=== PATIENT | female | born 1985 | race Caucasian/White ===

== ENCOUNTER 2019-10-30 11:37 | Outpatient (REF) | payer BC, SELFPAY ==
--- NOTE | 2019-10-30 10:00 | PAPFT_PTH ---
PATIENT: Keisha Fox LOC: [facility] U#:[id number] AGE/SX: 34/F ROOM: RE10/30/[address]: CHANA Samson : 1985 BED: DIS: 10/30/2019 SPEC #: [id number] RECD: 10/30/19 12:45 STATUS: FIDELIA REQ #: [id number] BAILEY: 10/30/19 10:[address]: Medina Hurtado DEPT: [facility] Cytology RECD BY: Kindra Cutler ENTERED: 10/30/19 12:45 SP TYPE: PAPFT OTHR DR: Jose Beverly MD Tissues: 1 - CX/ENDOCX FOR PAP SMEARS Procedures: PAP THIN PREP/UVM Screening HPV DNA PROBE Comments: [id number]
== END 2019-10-30 11:57 ==
LOC: LBN 11:37
PROVIDERS: PCP Pediatrics; Visit Provider Nurse Practitioner Family
DX: Z11.51 Encounter for screening for human papillomavirus (HPV) (principal)
CPT/HCPCS: 88142; 87624

== ENCOUNTER 2020-04-21 04:58 | Outpatient (CLI) | payer BC, SELFPAY ==
[2020-04-21 11:55] LABS: Kit/Specimen SENT
[2020-04-21 12:10] LABS: Abs Immature Grans 0.03 10^3/uL (0.0-0.06); Absolute Basophil Count 0.04 10^3/uL (0.0-0.2); Absolute Eosinophil Count 0.12 10^3/uL (0.0-0.7); Absolute Lymphocyte Count 2.48 10^3/uL (1.2-3.4); Absolute Monocyte Count 0.69 10^3/uL (0.1-0.8); Absolute Neutrophil Count 6.63 10^3/uL (1.2-6.7); Basophils % 0.4; Eosinophils % 1.2; HCT 38.6 % (36.0-46.0); HGB 12.9 g/dL (11.2-15.7); Immature Grans % 0.3; Lymphocytes % 24.8; MCH 31.3 pg (27.0-33.0); MCHC 33.4 % (32.0-36.0); MCV 93.7 fL (80-95); MPV 9.8 fL (8.0-11.0); Monocytes % 6.9; Neutrophils % 66.4; Nucleated RBC 0 %; Platelet Count 249 10^3/uL (130-400); RBC 4.12 10^6/uL (3.93-5.22); RDW 12.3 % (11.7-14.6); RDW-SD 42.6 fL; WBC 9.99 10^3/uL (4.4-10.8)
[2020-04-21 13:44] LABS: TSH (W/Ref FT4) 1.67 uIU/mL (0.36-3.74)
[2020-04-22 09:19] LABS: Hepatitis B Surface Ag Negative (Negative)
[2020-04-22 09:57] LABS: HIV-1/2 Ag & Ab Screen Negative (Negative)
[2020-04-22 10:11] LABS: Hepatitis C Ab w Rflx HCV PCR Negative (Negative)
[2020-04-22 10:43] LABS: Varicella IgG Antibody Positive (See Note)
[2020-04-22 10:45] LABS: Rubella IgG Ab (UVM) Positive (See Note)
[2020-04-22 14:25] LABS: Syphilis Total Ab w/Reflex Nonreactive (Nonreactive)
[2020-04-27 23:51] LABS: Result Summary NEGATIVE; Specimen WB Whole Blood
[2020-05-03 13:53] LABS: Specimen WB Whole Blood
== END 2020-04-21 05:18 ==
PROVIDERS: PCP Student in an Organized Health Care Education/Training Program; Visit Provider Advanced Practice Midwife
DX: Z34.91 Encounter for supervision of normal pregnancy, unspecified, first trimester (principal); Z11.4 Encounter for screening for human immunodeficiency virus [HIV]; Z11.59 Encounter for screening for other viral diseases; Z01.84 Encounter for antibody response examination
CPT/HCPCS: 36415; 81329; 86787; 86803; 86850; 86900; 86901; 87340; 87389; 81220; 84443; 85025; 86762; 86780

== ENCOUNTER 2020-04-21 18:48 | Outpatient (REF) | payer BC, SELFPAY ==
[2020-04-21 13:57] LABS: *AMPHETAMINES SCREEN URINE Negative (Negative); *BARBITURATES SCREEN URINE Negative (Negative); *BENZODIAZEPINES SCREEN URINE Negative (Negative); Cannabinoids THC POSITIVE (Negative); Cocaine Screen,Urine Negative (Negative); METHADONE URINE SCREEN Negative (Negative); OPIATES URINE SCREEN Negative (Negative)
[2020-04-21 14:01] LABS: Tricyclic Antidepressants Negative (Negative)
[2020-04-22 15:31] LABS: Chlamydia Result Negative (Negative); GC Result Negative (Negative)
[2020-04-28 13:48] LABS: Buprenorphine Negative; Norbuprenorphine Negative
== END 2020-04-21 19:08 ==
LOC: LBN 18:48
PROVIDERS: PCP Student in an Organized Health Care Education/Training Program; Visit Provider Advanced Practice Midwife
DX: Z34.91 Encounter for supervision of normal pregnancy, unspecified, first trimester (principal); Z11.3 Encounter for screening for infections with a predominantly sexual mode of transmission
CPT/HCPCS: 80307; 87491; 87591; 87086

== ENCOUNTER 2020-08-05 03:33 | Outpatient (CLI) | payer BC, SELFPAY ==
[2020-08-05 13:54] LABS: HCT 37.5 % (36.0-46.0); MCV 96.9 fL (80-95); MPV 9.7 fL (8.0-11.0); Platelet Count 265 10^3/uL (130-400); RBC 3.87 10^6/uL (3.93-5.22); RDW 12.7 % (11.7-14.6); RDW-SD 45.2 fL; WBC 9.92 10^3/uL (4.4-10.8)
[2020-08-05 14:05] LABS: Glucose,1 Hr (Glucola) 126 mg/dL (80-140)
== END 2020-08-05 03:34 | disposition home or self-care (01) ==
LOC: LBO 03:33
PROVIDERS: PCP Student in an Organized Health Care Education/Training Program; Visit Provider Advanced Practice Midwife
DX: Z34.92 Encounter for supervision of normal pregnancy, unspecified, second trimester (principal); Z3A.27 27 weeks gestation of pregnancy
CPT/HCPCS: 36415; 82950; 85027

== ENCOUNTER 2020-09-20 02:11 | Outpatient (CLI) | payer BC, SELFPAY ==
--- NOTE | 2020-09-20 06:45 | DI.US_ITS ---
Exam(s) US OB JARROD WEIGHT EXAM: US OB JARROD WEIGHT CLINICAL HISTORY: growth related to AMA per recommendation of [facility] [place]o09.519 TECHNIQUE: Ultrasound performed using standard protocol. COMPARISON: No exams were available for comparison FINDINGS: Ob ultrasound was performed utilizing 3rd trimester protocol. Placenta is anterior with no placenta previa. There is visually a normal quantity of amniotic fluid and the JARROD is 18. biometry is consistent with gestational age of 34 weeks 1 day and an EDC of October 31. Estimated weight is 2279 grams which is at the 41st percentile for predicted gestational age. Fetus is in cephalic presentation. heart rate is 139 BPM. IMPRESSION: DATA REPOSITORY:
== END 2020-09-20 02:31 ==
PROVIDERS: PCP Student in an Organized Health Care Education/Training Program; Visit Provider Advanced Practice Midwife
DX: O09.513 Supervision of elderly primigravida, third trimester (principal); Z3A.34 34 weeks gestation of pregnancy
CPT/HCPCS: 76816

== ENCOUNTER 2020-10-04 15:25 | Outpatient (REF) | payer BC, SELFPAY | END 2020-10-04 15:26 | disposition home or self-care (01) | LOC: LBN 15:25 | PROVIDERS: PCP Student in an Organized Health Care Education/Training Program; Visit Provider Advanced Practice Midwife | DX: Z34.93 Encounter for supervision of normal pregnancy, unspecified, third trimester (principal); Z36.85 Encounter for antenatal screening for Streptococcus B; Z3A.34 34 weeks gestation of pregnancy | CPT/HCPCS: 87081 ==

== ENCOUNTER 2020-10-20 18:34 | Outpatient (REF) | payer BC, SELFPAY ==
[2020-10-20 20:37] LABS: *AMPHETAMINES SCREEN URINE Negative (Negative); *BARBITURATES SCREEN URINE Negative (Negative); *BENZODIAZEPINES SCREEN URINE Negative (Negative); Cannabinoids THC Negative (Negative); Cocaine Screen,Urine Negative (Negative); METHADONE URINE SCREEN Negative (Negative); OPIATES URINE SCREEN Negative (Negative)
[2020-10-20 20:38] LABS: Tricyclic Antidepressants Negative (Negative)
[2020-10-26 12:37] LABS: Buprenorphine Negative ng/mL (Cutoff: 5.0); Norbuprenorphine Negative ng/mL (Cutoff: 2.5)
== END 2020-10-20 18:35 | disposition home or self-care (01) ==
LOC: LBN 18:34
PROVIDERS: PCP Student in an Organized Health Care Education/Training Program; Visit Provider Advanced Practice Midwife
DX: Z34.93 Encounter for supervision of normal pregnancy, unspecified, third trimester (principal); Z3A.38 38 weeks gestation of pregnancy
CPT/HCPCS: 80307

== ENCOUNTER 2020-11-02 06:11 | Outpatient (CLI) | payer BC, SELFPAY | END 2020-11-02 06:12 | disposition home or self-care (01) | LOC: BCD 06:12 | PROVIDERS: PCP Student in an Organized Health Care Education/Training Program; Visit Provider Advanced Practice Midwife | DX: R69 Illness, unspecified (principal) ==

== ENCOUNTER 2020-11-03 21:28 | Inpatient (IN) | payer BC, SELFPAY ==
[2020-11-03 22:26] VITALS: BP 136/86; PULSE 75; RESP 18
[2020-11-03 22:33] VITALS: BP 136/86; PULSE 75; RESP 16; TEMP 36.7
--- NOTE | 2020-11-03 22:59 | W.PM.OBHPL1 ---
Date of service: 11/03/20 Time of Service: 22:59 Assessment and Plan Assessment and plan (1) 40 weeks gestation of : Status: Acute (2) Uterine contractions: Status: Acute Assessment and plan: A: 35 yo G1 @ 40+1 wks latent phase labor, intact membranes category 1 tracing GBS neg, low risk for SD and PPH P: Will observe overnight for cervical change/active labor Ambulate, shower, comfort measures as requested Encourage PO fluid intake, anti-emetic prn Recheck cvx in 3-4 hrs or prn OB-HPI Labor/Delivery History of Present Illness Reason for Visit: 40 weeks r/o labor Chief Complaint: Uterine Contractions. GLENIS Calculator Estimated Delivery Date Method Current WG Current Estimate 11/02/20 LMP (Certain) 40w 1d Other Estimates 11/05/20 Ultrasound #1 39w 5d Comments: Contractions began at 1730, became somewhat more regular and stronger as the evening passed, nausea and vomiting on the ride to the hospital. No bleeding, no ROM. History of Present Expected Delivery Route/Plan - CNM FOB/ - Bruce Ernandezman BB yes to circ Desires to use tub, shower, labor actively. May request to take placenta home. GBS neg Prefers to avoid active management of third stage unless strongly indicated Specific Issues/Plan 1. 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 1a. Pt did not give UDS spec @ 28 wks, UDS @ 38 wks is negative 2. AMA accepts MFM consult @ [facility] [place] - 06/15 - 2a. US shows echogenic intracardiac foci - otherwise WNL. 2b. Growth US at 32 weeks / US 09/20/20 41% growth, normal JARROD 18 3. Low dose ASA to initiate as of IOB 2`to nullip/ama status. 4. Optional labs as of IOB: Eliot result low prob x3, male 4a. CF & SMA carrier screen neg al 5. Heartburn - using TUMS and maalox PRN 6. Keisha and her partner received 2 doses of covid vaccine Assessment: History Reviewed & Current Review of Systems All systems reviewed & are unremarkable except as noted in HPI and below Constitutional Constitutional: Reports system reviewed and no additional complaints, except as documented and Reports poor appetite Cardiovascular Cardiovascular: Reports system reviewed and no additional complaints, except as documented Respiratory Respiratory: Reports system reviewed and no additional complaints, except as documented Gastrointestinal Gastrointestinal: Reports system reviewed and no additional complaints, except as documented Genitourinary Genitourinary: Reports system reviewed and no additional complaints, except as documented Musculoskeletal Musculoskeletal: Reports back pain Integumentary/Breasts Skin/Breast: Reports system reviewed and no additional complaints, except as documented Neurologic Neurologic: Reports system reviewed and no additional complaints, except as documented Psychiatric Psychiatric: Reports system reviewed and no additional complaints, except as documented [facility] Medical History (Updated 11/03/20 @ 23:06 by Erendira Gutierrez) Elevated blood pressure reading in- office x2 Environmental allergies Eye fatigue Family history of coronary artery disease Family planning Recently stopped BC (Dec 2019) to start a family. Working with Nancy @ [employer]. Foot pain, left Acute, no clear memory of injury. @ left sole, just proximal to toes. Marijuana use early , neg THC on UDS at 38 wks Positive test Family History (Updated 04/21/20 @ 10:30 by Julien Carreon, VIVI) Father Multiple sclerosis Sister Multiple sclerosis Mother Hypertension Social History (Updated 04/21/20 @ 10:31 by Julien Carreon, VIVI) Smoking/Tobacco Use Status: Never Smoking risk assessment performed?: Yes Alcohol Intake: former Counseling given: Yes Details: stopped with desire to concieve. al History History 1 Para 0 Hx # Term Pregnancies 0 Multiple births 0 Hx # Pregnancies 0 Ectopic pregnancies 0 AB induced 0 Hx Number of Living Children 0 AB spontaneous 0 Meds Allergies and Home Medications Allergies Allergy/AdvReac Type Severity Reaction Status Date / Time seasonal Allergy Intermediate Uncoded 10/28/20 10:53 Home Medications Medication Instructions Recorded Confirmed Type prenat.vits,jade,jkh-hjcx-oiyhj 1 tab PO DAILY 03/07/20 10/28/20 History aspirin 81 mg tablet,delayed 162 mg PO DAILY tab 08/19/20 10/28/20 History release aluminum-mag hydroxide-simethicone 10 ml PO ONCE PRN ml 10/04/20 10/28/20 History 200 mg-200 mg-20 mg/5 mL oral susp calcium carbonate 200 mg calcium 400 mg PO BID PRN tab 10/04/20 10/28/20 History (500 mg) chewable tablet loratadine 10 mg tablet 10 mg PO DAILY PRN 10/13/20 10/28/20 History Exam Physical Exam Vital signs: Pulse Resp BP 75 18 136/86 11/03/20 22:33 11/03/20 22:26 11/03/20 22:33 Vital Signs Reviewed: Yes Constitutional Constitutional: mild distress Detailed Labor and Delivery Exam Dilation: 1.5 Effacement (%): 80 station: -2 Position: LOP Cervix position: posterior Consistency: medium NOLAN Score(Cervical Ripeness Score): 6 Amniotic Membrane Status: Intact Contraction Frequency(min): q2-4 Contraction Duration(sec): 40-70 Contraction Intensity: Mild Fetus A Heart Rate Baseline: 135 Monitor Accelerations: 15 X 15 Monitor Decelerations: None Variability: Moderate (6-25 BPM) Presentation: Cephalic Categories: Category I Est. Weight: 7 lb 4.404 oz Est. Weight: 3300 gms HEENT Exam HEENT Exam: Normal Neck Exam Neck Exam: Normal Chest/Brest/Axilla Exam Chest Exam: Normal Breast Exam Breast Exam: Not Done Respiratory Exam Respiratory Exam: Normal Cardiovascular Exam Cardiovascular Exam: Normal Abdominal Exam Abdominal Exam: Normal (Gravid) Rectal Exam Rectal Exam: Not Done Exam Exam: Normal Extremities Exam Extremities Exam: Normal Back/Spine/Pelvis Exam Back Exam: Normal Pelvis Adequate: Yes Skin Exam Skin Exam: Normal Neurological Exam Neurological Exam: Normal Psychiatric Exam Psychiatric Exam: Normal Results Results Group Beta Strep: Negative Blood Type: A+ Rubella Status: Immune Varicella Immunity: Immune Risk Assessment Risk for Shoulder Dystocia Historical/Initial OB: NEGATIVE FOR: Pelvic Abnormality, Pre- BMI>30, Previous Shoulder Dystocia or Previous Macrosomia 40 Weeks: NEGATIVE FOR: EFW> 4500 gms, Maternal Weight Gain >40lb or Post Dates Increased Risk?: No Counselin04/21/20 low risk al Delivery Plan @ 40 wks: spont labor, Risk for Pre-Eclampsia Daily Dose ASA Indicated: Yes Date Initiated/Initials: 04/21/20 al Yes, if one or more: NEGATIVE FOR: Hx Pre-E/Gest HTN, Chronic HTN, Multiple Gestation, Pre-gestational DM, Renal Disease, Systemic Lupus or APA Syndrome Yes, if 2 or more: POSITIVE FOR: Nulliparity and Age>= 35 yrs; NEGATIVE FOR: >10yr btwn pregnancies, BMI>30, ethinicty, Mother/Sister w/ Pre-E or Previous IUGR Risk for Post- Hemorrhage Initial: NEGATIVE FOR: Multiple Gestation, Previous PPH, Known Clotting Deficiency, Grand Multiparity or Anticoagulation At Risk?: No Counseled re: Active Management: Yes Date/Initials: pt hopes to avoid active management but understands indications Risks Reviewed Risks Reviewed Upon Admission: Yes
[2020-11-03 23:26] LABS: Source Nasal/Nares
[2020-11-04] VITALS (50 sets, daily range): BP systolic 98–160; BP diastolic 58–96; PULSE 74–99; RESP 16–18; TEMP 36.5–37.1; O2SAT 97–100; BMI 28.3
[2020-11-04 00:20] LABS: COVID-19 PCR Negative (Negative)
[2020-11-04] MEDS: Ondansetron O.D.T. 4 MG TABEF PO (01:46)
--- NOTE | 2020-11-04 01:51 | W.PM.OBNL1 ---
Date of service: 11/04/20 Time of Service: 01:51 Pelvic Exam Dilation: 2 Effacement (%): 90 station: -1 Position: LOP Cervix Position: posterior Consistency: medium Vaginal Exam Presentation: Cephalic Contractions Monitor Mode: Palpation Contraction Frequency(min): q2-3 Contraction Duration(sec): 60-70 Intensity: Mild/Moderate Fetus A Monitor: Doppler Heart Rate Baseline: 135 Presentation: Cephalic FHR Rhythm: Regular Accelerations: Present Decelerations: None Amniotic Membrane Status: Intact Assessment and Plan Assessment and plan (1) Uterine contractions: Status: Acute Assessment and plan: A: Latent phase labor in primipara mild dehydration, risk of maternal exhaustion P: Options for IV Hydration and narcotic therapeutic rest reviewed & declined by pt Offered Zofran 4 mg ODT q4 hrs for nausea, pt accepts Offered use of hydrotherapy tub for relaxation, pt accepts Admit inpt to BC and draw T&S and CBC, COVID swab done and negative Continue to support pt and monitor for onset of active labor Objective Temp Pulse Resp BP 98.1 F 75 16 136/86 11/03/20 22:33 11/03/20 22:33 11/03/20 22:33 11/03/20 22:33 Laboratory Results COVID-19 Source Nasal/Nares 11/03/20 23:10 SARS-CoV-2 (PCR) Negative (Negative) 11/03/20 23:10 Vital Signs Reviewed: Yes Objective Narrative Objective Narrative: Normotensive, afebrile Slight cervical change with palpable descent on exam Pt closes eyes and breathes hard with each contraction Has been ambuating, resting, using floor mat and CUB, shower FHT reassuring per intermittent auscultation Tolerating sips of water but nauseated Urine sp gr on arrival 2 hrs ago was concentrated @ 1.025 Subjective Interval history since last seen: Pt feels tired, wishes she coudl sleep but contractions come every 2-3 minutes. She did doze off while on floor mat briefly. Requesting cvx recheck and options for comfort/coping. Interventions Pain Management Interventions: Comfort Measures .
[2020-11-04 02:09] LABS: HGB 12.2 g/dL (11.2-15.7); MCH 31.1 pg (27.0-33.0); MCV 94.4 fL (80-95); MPV 11.2 fL (8.0-11.0); Platelet Count 189 10^3/uL (130-400); RBC 3.92 10^6/uL (3.93-5.22); RDW 12.8 % (11.7-14.6); RDW-SD 44.1 fL; WBC 15.61 10^3/uL (4.4-10.8)
--- NOTE | 2020-11-04 05:43 | W.PM.OBNL1 ---
Date of service: 11/04/20 Time of Service: 05:43 Pelvic Exam Dilation: 3 Effacement (%): 100 station: -1 Cervix Position: mid Consistency: soft Vaginal Exam Presentation: Cephalic Contractions Monitor Mode: External Contraction Frequency(min): every 2-3 Contraction Duration(sec): 60-90 Intensity: Moderate/Strong Fetus A Monitor: External (US) Heart Rate Baseline: 130 Presentation: Cephalic Variability: Moderate (6-25 BPM) Categories: Category I Accelerations: Prolonged Decelerations: None Amniotic Membrane Status: Intact Assessment and Plan Assessment and plan (1) Uterine contractions: Status: Acute Assessment and plan: A: primipara progressing into active labor P: Continue to expectant management Comfort measures as needed Anticipate today Objective Vital Signs Reviewed: Yes Objective Narrative Objective Narrative: Rested well in tub Requested nitrous inhalant when back in bed on EFM Temp 99.1 after leaving tub, Category 1 tracing with prolonged accels noted SVE done for notable progress toward active labor: 3/100% vtx -1, soft forebag Pt requested information about epidural anesthesia, discussed with pt & FOB Declines regional anesthesia at this time & entered shower Subjective Interval history since last seen: Contractions are very strong, nausea persists but without emesis. Was in the tub for 2-3 hrs with good relaxation and was able to nap. Pain has increased since leaving the tub. Interventions Pain Management Interventions: Comfort Measures and Nitrous Oxide , using nitrous per guidelines .
--- NOTE | 2020-11-04 06:12 | PGE_ITS ---
Date of service: 11/04/20 Time of Service: 06:12 Informed Consent Informed Consent: Regional Anesthesia and Risk,Benefits,Alternatives Discussed Fetus A Monitor: External (US) Heart Rate Baseline: 130 Presentation: Cephalic Variability: Moderate (6-25 BPM) Categories: Category I Accelerations: 15 X 15 Decelerations: None Amniotic Membrane Status: Intact Assessment and Plan Assessment and plan (1) Uterine contractions: Status: Acute Assessment and plan: A: request for epidural P: Nsng tracer bullet section supervisor notified VOLLEYBALL COMMENTATOR enroute Objective Pt and FOB discussed regional anesthesia and pt requests epidural Subjective Interval history since last seen: Pt requests epidural anesthesia Interventions Pain Management Interventions: Epidural .
--- NOTE | 2020-11-04 06:23 | ANES.PREOP_ITS ---
General Info Date of Service Date Performed: 11/04/20 Height: 5 ft 6.14 in Weight: 79.832 kg Body Mass Index (BMI): 28.3 Meds Allergies and Home Medications Allergies Allergy/AdvReac Type Severity Reaction Status Date / Time seasonal Allergy Intermediate Uncoded 10/28/20 10:53 Home Medication Medication Instructions Recorded prenat.vits,jade,dge-oyem-etlod 1 tab PO DAILY 03/07/20 aspirin 81 mg tablet,delayed 162 mg PO DAILY tab 08/19/20 release aluminum-mag hydroxide-simethicone 10 ml PO ONCE PRN ml 10/04/20 200 mg-200 mg-20 mg/5 mL oral susp calcium carbonate 200 mg calcium 400 mg PO BID PRN tab 10/04/20 (500 mg) chewable tablet loratadine 10 mg tablet 10 mg PO DAILY PRN 10/13/20 Current Visit Medications: Current Medications Generic Name Dose Route Start Last Admin Trade Name Freq PRN Reason Stop Dose Admin Fentanyl/Ropivacaine 200 ml 11/04/20 06:15 Fentanyl/Ropivacaine 2 Mcg/Ml And 0.1% 200 Ml Cadd Cassette EP DIRECTED FARRAH Ringer's Solution 500 mls @ 500 mls/hr 11/04/20 06:05 IV 11/04/20 07:04 BOLUS ONE Sodium Chloride 500 mls @ 0 mls/hr 11/04/20 06:16 Saline 500ml Bag IV PRN PRN As Directed Ringer's Solution 1,000 mls @ 150 mls/hr 11/04/20 06:30 IV INFUSION [facility] IV Miscellaneous Supplies 1 each 11/04/20 06:30 Iv Access IV DIRECTED [facility] Ondansetron HCl 4 mg 11/03/20 23:11 11/04/20 01:46 Ondansetron O.D.T. 4 Mg Tabef PO 4 mg Q4H PRN PRN Administration Sodium Chloride 0 ml 11/04/20 06:16 Normal Saline Flush 10 Ml Syr IVP PRN PRN PFSH Active Problems Active Problems: Problem Status Onset Code Uterine contractions O47.9 40 weeks gestation of Z3A.40 AMA (advanced maternal age) primigravida 35+ O09.519 Z34.90 Echogenic intracardiac focus of fetus on ultrasound O28.3 Marijuana use F12.90 Elevated blood pressure reading R03.0 Foot pain, left M79.672 Environmental allergies Z91.09 Family history of coronary artery disease Z82.49 Eye fatigue H53.10 Medical History Medical History (Updated 11/03/20 @ 23:06 by Erendira Gutierrez) Elevated blood pressure reading in- office x2 Environmental allergies Eye fatigue Family history of coronary artery disease Family planning Recently stopped BC (Dec 2019) to start a family. Working with Nancy @ [employer]. Foot pain, left Acute, no clear memory of injury. @ left sole, just proximal to toes. Marijuana use early , neg THC on UDS at 38 wks Positive test Tobacco Smoking/Tobacco Use Status: Never Alcohol Alcohol Intake: former Counseling given: Yes Details: stopped with desire to concieve. al Substance Use Substance use type: marijuana Prental History History 1 Para 0 Hx # Term Pregnancies 0 Multiple births 0 Hx # Pregnancies 0 Ectopic pregnancies 0 AB induced 0 Hx Number of Living Children 0 AB spontaneous 0 Vital Signs and Lab Results Vital Signs Most Recent Vital Signs in EMR: Most Recent Vital Signs Temp Pulse Resp BP Pulse Ox 37.1 C 95 H 18 140/84 98 11/04/20 04:40 11/04/20 04:42 11/04/20 04:40 11/04/20 04:40 11/04/20 04:42 Lab Results Result Diagrams: 11/04/20 02:00 Blood Type / Crossmatch: Patient ABO/Rh A Positive 11/04/20 02:00 11/04/20 Antibody Screen NEGATIVE 11/04/20 02:00 11/04/20 Complete Blood Count: White Blood Count 15.61 10^3/uL (4.4-10.8) H 11/04/20 02:00 11/04/20 Red Blood Count 3.92 10^6/uL (3.93-5.22) L 11/04/20 02:00 11/04/20 Hemoglobin 12.2 g/dL (11.2-15.7) 11/04/20 02:00 11/04/20 Hematocrit 37.0 % (36.0-46.0) 11/04/20 02:00 11/04/20 Platelet Count 189 10^3/uL (130-400) 11/04/20 02:00 11/04/20 Complete Metabolic Panel: No Data to Display Liver Function Panel: No Data to Display Coagulation Panel: No Data to Display Cardiac Panel: No Data to Display Arterial Blood Gas: No Data to Display Venous Blood Gas: No Data to Display Pancreas Panel: No Data to Display Thyroid Panel: No Data to Display Infectious Disease: Coronavirus (COVID-19)(PCR) Negative (Negative) 11/03/20 23:10 11/03/20 Coronavirus 2019 Source Nasal/Nares 11/03/20 23:10 11/03/20 Blood Cultures: No Data to Display Toxicology Panel: Urine Amphetamines Screen Negative (Negative) 10/20/20 14:50 10/20/20 Urine Benzodiazepines Screen Negative (Negative) 10/20/20 14:50 10/20/20 Urine Barbiturates Screen Negative (Negative) 10/20/20 14:50 10/20/20 Urine Cocaine Screen Negative (Negative) 10/20/20 14:50 10/20/20 Urine Methadone Screen Negative (Negative) 10/20/20 14:50 10/20/20 Urine Opiates Screen Negative (Negative) 10/20/20 14:50 10/20/20 Ur Tricyclic Antidepressants Screen Negative (Negative) 10/20/20 14:50 10/20/20 Ur Tetrahydrocannabinol (THC) Scrn Negative (Negative) 10/20/20 14:50 10/20/20 Panel: No Data to Display Anesthesia Assessment and Plan Anesthesia History Personal History: No History of General Anesthesia Family History: No Family History of Anesthesia Complications Exercise Tolerance Exercise Tolerance: Metabolic Equivalents>4 Pertinent Negatives Pertinent Negatives: No Major Cardiovascular Symptoms or Complaints, No Major Pulmonary Symptoms or Complaints, No History of CVA/TIA and Other (GERD) Cardiac & Pulmonary Exam Cardiac Exam: Normal S1/S2 Heart Sounds Pulmonary Exam: Clear Bilateral Breath Sounds Airway Exam Known Difficult Airway: No Mallampati Class: 1 Mouth Opening: Normal (> 3cm) Thyromental Distance: Greater than 3 cm Neck Range of Motion: Full ROM Neck Circumference: Normal Teeth Condition: Normal Dentition ASA Classification ASA Score: ASA 2 Emergency Case?: No NPO Status NPO Status: Full Stomach Status Status: Confirmed and Other () Anesthesia Plan Resuscitation Status: Full Code Anesthesia Technique: Epidural Anesthesia Airway Planned: Natural Airway Monitors Used: Standard Monitors Preoperative Comments:: 35 yo female G1 with labor epidural request. plt 189. was 3 cm, 100%, -1 at 0500.
[2020-11-04] MEDS: Lactated Ringers 500 ML IV (06:30)
[2020-11-04] MEDS: FentaNYL/ROPIvacaine 2 mcg/ml and 0.1% 200 ML CADD Cassette EP ×2 (07:00→20:00)
[2020-11-04] MEDS: Lactated Ringers 1,000 ML 150 ML IV ×3 (07:27→17:33)
--- NOTE | 2020-11-04 08:50 | W.ANESNEU ---
Epidural/Spinal Catheter Date Performed: 11/04/20 Procedure Start: 06:30 Procedure Stop: 07:05 Requesting Provider: Erendira Gutierrez Procedure Location: Obstetrics Reason Performed: Labor Epidural Standard Monitors Applied: Blood Pressure and SpO2 Patient Position: Sitting Sedation Given (Indicate Dose Given): No Sedation given Patient Mental Status: Awake Sterility: Hand Hygiene, Surgical Cap, Surgical Mask, Sterile Gloves, Sterile Drape/Sheet and Chlorhexidine Procedure Location: L3-L4 Interspace Epidural Needle: Tuohy 17 Guage Needle Length: 3.5 Inch Needle Approach: Midline Epidural Procedure: Skin Prepped, Sterile Drape Placed, 1% Lidocaine to skin and subcutaneous tissue with 25G needle, Tuohy Needle placed, ZENIA to Saline Used, Epidural Catheter Placed, Negative Heme, Negative CSF Flow and Tuohy Needle Removed Catheter Placed?: Catheter Placed Test Dose (Indicate Dose Given): 3ml 1.5% Lidocaine with 1:200K Epinephrine Given Loss of Resistance Depth (cm): 5 Catheter depth at skin (cm): 12 Dressing: Sorbaview Dressing Placed, Mastisol Used and Dressing reinforced with Tape Epidural Provider Bolus (Indicate Dose Given): Total Ropivacaine 0.1% with Fentanyl 2mcg/ml Given from pump (ml) Dose:: 5mL Additives (Indicate Dose Given ): None Infusion Medication: Medication Infusion Began Medication Infusion: Ropivacaine 0.1% with Fentanyl 2mcg/ml Maintenance Infusion Rate (ml/hour): 12 PCEA Bolus Dose (ml): 5 Block Level: N/A Paresthesia: None Ultrasound: Not Used Number of Attempts (See previous attempts in note section): 1 Procedure Tolerated: No Complications and Patient tolerated well Procedure Outcome: Successful Performed By: Ca Licea Supervised By: Edgar Hughes
--- NOTE | 2020-11-04 08:54 | W.PM.OBNL1 ---
Date of service: 11/04/20 Time of Service: 08:54 Pelvic Exam Dilation: 4 Effacement (%): 100 station: -1 Position: LOP Cervix Position: mid Consistency: soft Contractions Monitor Mode: External Contraction Frequency(min): q2-4 Contraction Duration(sec): 60-80 Intensity: Moderate Fetus A Monitor: External (US) Heart Rate Baseline: 135 Presentation: Cephalic Variability: Moderate (6-25 BPM) Categories: Category I Accelerations: 15 X 15 Decelerations: None Amniotic Membrane Status: Ruptured Rupture Method: Artifical Amniotic Fluid: Clear Amount: moderate Date of Membrane Rupture: 11/04/20 Time of Membrane Rupture: 08:50 Assessment and Plan Assessment and plan (1) Uterine contractions: Status: Acute Assessment and plan: A: primipara, active labor, epidural P: maternal position changes to facilitate rotation consider augmentation if no cervical change in 2 hrs anticipate Objective Vital Signs Reviewed: Yes Objective Narrative Objective Narrative: Pt resting well with epidural Verbal consent obtained for AROM Clear fluid with bloody show returned LOP position clearly palpable by sutures vss, category 1 tracing Subjective Interval history since last seen: Pt reports good relief with epidural anesthesia. Interventions Pain Management Interventions: Epidural Epidural Placed by:: Edgar Hughes . Results Abnormal Lab Findings:
[2020-11-04] MEDS: Oxytocin/Normal Saline 30 UNIT/500 ML BAG 1 UNITS IV (11:02)
--- NOTE | 2020-11-04 13:31 | W.PM.OBNL1 ---
Date of service: 11/04/20 Time of Service: 13:32 Informed Consent Informed Consent: Other (insertion of IUPC) Pelvic Exam Dilation: 4.5 Effacement (%): 100 station: -1 Cervix Position: mid Consistency: soft Contractions Monitor Mode: Internal Contraction Frequency(min): q 2-4 Contraction Duration(sec): 60-70 Intensity: Moderate/Strong IUPC resting tone (mmHg): 20 IUPC peak pressure (mmHg): 90 Fetus A Monitor: External (US) Heart Rate Baseline: 120 Presentation: Cephalic Variability: Moderate (6-25 BPM) Categories: Category I Accelerations: 15 X 15 Decelerations: Early Recurrence: Intermittent Amniotic Membrane Status: Ruptured Assessment and Plan Assessment and plan (1) Uterine contractions: Status: Acute Assessment and plan: A: primipara, spontaneous labor epidural anesthesia since 3 cm dilation @ 0700, AROM @ 4 cm dilation, Pitocin augmentation begun at 1115 Slow progress to 4-5 cm P: IUPC inserted and working well Will adjust pitocin as needed for adequate contraction pattern Dr. Alfaro consulting Objective Reports her left leg is more numb then right Attempted to use bedside commode but legs are too numb Armenta inserted per RN for 200 ml concentrated yellow urine Pitocin begun at 1115, currently infusing at 2 mu/min Contractions have remained irregular, intensity difficult to assess SVE now 4-5/100% vtx -1, cervical edema palpable, slight caput and molding palpable IUPC inserted after informed consent obtained with pt, pt declines FSE application EFM tracing generally category 1 with occasional early, question of occasional variable Subjective Patient Reports: No new Complaints Interval history since last seen: Comfortably resting with effective epidural Interventions Augmentation , Pitocin rate (mU/min): 2 Procedure Procedures: IUPC Insertion , indication for IUPC: assessment of adequacy of contractions, pitocin augmentation
--- NOTE | 2020-11-04 16:08 | PGE_ITS ---
Date of service: 11/04/20 Time of Service: 16:09 Pelvic Exam Dilation: 7 Effacement (%): 100 station: -1 Position: LOP Cervix Position: mid Consistency: soft Contractions Monitor Mode: External Contraction Frequency(min): q2-4 Contraction Duration(sec): 60-80 Intensity: Moderate/Strong IUPC resting tone (mmHg): 20 IUPC peak pressure (mmHg): 90 IUPC [place] units: 70 Fetus A Monitor: External (US) Heart Rate Baseline: 125 Presentation: Cephalic Variability: Moderate (6-25 BPM) Categories: Category I (occasional variable noted with a contraction, nonrecurrent, question of lates resolved with position change) Accelerations: 15 X 15 Decelerations: Early Amniotic Membrane Status: Ruptured Assessment and Plan Assessment and plan (1) Prolonged labor with first : Status: Acute Assessment and plan: A: active labor currently @ 7 cm, epidural anesthesia, IUPC in place pitocin augmentation, @ 4 mu/min adequate contraction pattern per Javier Units @ >200/10 min segment persistent LOP head position @ -1 EFM tracing generally category 1 P: Dr. Alfaro made aware of pt status Cont current plan of care Reassess for progress in 2-3 hrs Objective Vital Signs Reviewed: Yes Objective Narrative Objective Narrative: Pt remains comfortable, is able to sense contractions as lower abd pressure. Reports mid-back pain at times. Pt sat up for to rub her back and late decels appeared though moderate variability continues SVE for 7/100% LOP -1, pt positioned LLP and 500 ml bolus given IV Tracing returned to category 1 thereafter, and accel was elicited with scalp stim during SVE. Discussed with pt the implications of persistent LOP position on slow progress in labor Subjective Patient Reports: No new Complaints
--- NOTE | 2020-11-04 18:08 | PGE_ITS ---
Date of service: 11/04/20 Time of Service: 18:08 Pelvic Exam Dilation: 8.5 station: -1 Position: LOP Contractions Monitor Mode: External Contraction Frequency(min): q 2-3 Contraction Duration(sec): 60-80 IUPC resting tone (mmHg): 25 IUPC peak pressure (mmHg): 80 Fetus A Monitor: External (US) Heart Rate Baseline: 135 Presentation: Cephalic Variability: Moderate (6-25 BPM) Categories: Category II Accelerations: 15 X 15 Decelerations: Variable Recurrence: Intermittent Amniotic Membrane Status: Ruptured Assessment and Plan Assessment and plan (1) Prolonged labor with first : Status: Acute Assessment and plan: A: active labor, pit aug @ 4 mu/min decreasing epidural effectiveness with advanced dilation category 2 tracing due to variable decels P: Tracing and progress to 8-[address] Alfaro Will continue current plan of care Comfort measures as needed, encourage use PROGRAM PROJECT MANAGER Close watch on tracing, Anticipate Objective Vital Signs Reviewed: Yes Objective Narrative Objective Narrative: Reviewed tracing with Dr. Alfaro, requested CNM place FSE Discussion of R&B of FSE held with pt, consent obtained, FSE placed without difficulty, cvx 8-9, head 0 to -1 station Category 2 tracing due to occasional variable decel with contraction Moderate variability continues P't discomfort levels rising, mid back pain has increased, low back has resumed, and RLQ pain has appeared Subjective Interval history since last seen: Pain has increased, especially in RLQ area, crying and vocalizing with contractions Procedure Procedures: Scalp Electrode Placement , indication for electrode: variable decels
--- NOTE | 2020-11-04 20:23 | W.PM.OBNL1 ---
Date of service: 11/04/20 Time of Service: 20:24 Pelvic Exam Dilation: 9 Effacement (%): 100 station: 0 Position: LOP Consistency: soft Fetus A Categories: Category II (generally category 1 with occasional variable decel with a contraction, rapid resolution) CategoryII Plan of Care: Reassess and Continuous Monitoring/Observation Assessment and Plan Assessment and plan (1) Prolonged labor with first : Status: Acute Assessment and plan: A: Slow progress in active stage labor At risk for arrest of dilation and descent Internal FSE/IUPC working well Pit increased to 5 MU/min P: Continue titrating pitocin for adequate labor Observe for further progression Maintain pt comfort with epidural [employer]PER[employer]OR [employer]SEM[employer] Objective Vital Signs Reviewed: Yes Notable Details: BP elevations noted x2 during increased pain, nml when pain controlled Objective Narrative Objective Narrative: SVE performed 2 hrs after FSE placed: minimal change noted, cvx at 9 cm with prominent edematous anterior lip palpable, vtx 0/-1 EFM tracing generally cat 1 with moderate variability and stable baseline, occasional variable for periods of category 2 that resolve Fluid draining from introitus is clear and blood tinged Pt appreciates movement at times Normotensive once pain control improved with use of [employer]PER[employer]OR [employer] Pt has been sleeping for the past 2 hrs Subjective Patient Reports: No new Complaints Interval history since last seen: Lengthy nap after a couple of SUPER[employer]OR [employer]SEM[employer] doses q 15 minutes were taken by pt. She is resting LLP and states she is feeling more comfortable. Results Abnormal Lab Findings:
[2020-11-04] MEDS: Oxytocin/Normal Saline 30 UNIT/500 ML BAG 6 UNITS IV (20:45)
[2020-11-04] MEDS: Oxytocin 10 UNITS/ML VIAL IM (23:03)
--- NOTE | 2020-11-04 23:37 | OBVDS_ITS ---
Date of service: 11/04/20 Time of Service: 23:37 OB Labor/ Delivery Information Baby A Delivery Delivery Method: Spontaneaous Presentation: Vertex Vertex Position: Right Occipital Anterior Breech Position: N/A Cord Description-Baby A: 3 Vessels and Nuchal Cord (loose, delivered shoulders and body through cord loop) Amniotic Fluid: [place] Tinged and Meconium Estimated Blood Loss: 200 ml Delivery Outcome: Liveborn Infant Transferred: Remains with Mother Note: Pt reported rectal pressure and urge to bear down at 2150, SVE for thick edematous anterior lip, vtx @ +1, category 2 tracing for variable decels, pitocin augmentation at 6 MU/min. Pt encouraged to push with contractions and lip manually reduced over 10 minute period to full dilation, vtx +2. 2nd stage huddle completed, excellent maternal efforts in semifowlers with feet supported on squat bar resulted in of a vigorous male over MLE which was cut after lengthy and 2 minutes of FHT @ 70-90 bpm. Head delivered immediately and shoulders easily followed through a loop of nuchal cord which was pushed down the body as the baby emerged. Bulb sx on field and then baby to mother's arms for further drying and stim, pitocin 10 units given IM and pitocin IV bolus infusion begun, cord ceased pulsating, clamped and cut by FOB, cord blood collected, then [place] placenta with 3VC delivered intact. MLE found to be 2nd degree without extension and repaired with 3.0 Vicryl, no other lacerations were seen on inspection, minimal rubra with EBL of 200 ml. Pt intends to take the placenta home with her: placenta placed in plastic container, labeled and placed in red plastic hazard bag, stored in refrigerator in pt's room. Excellent family bonding observed, apgars 7/9, weight 3430 gms. Providers Nurse Public Service Representative: Erendira Gutierrez Nurse: Mariann Appiah Nurse: Ken Fuentes Labor/Delivery Information Number of Babies in Womb: 1 Steroids Given: None Reason Steroids Not Administered: N/A Group Beta Strep: Negative Antibiotics Administered: No Rubella Status: Immune Blood Type: A+ Varicella Immunity: Immune Medication in Delivery: pitocin IM and IV Maternal Complications: Prolonged Labor(>20hrs) Shoulder Dystocia: No Stages of Labor Onset of Labor Date: 11/03/20 Onset of Labor Time: 19:15 Complete Dilatation Date: 11/04/20 Complete Dilatation Time: 22:07 Labor - Stage 1 Duration: 24 hours and 0 minutes ROM Baby A: 11/04/20 ROM Baby A: 08:50 Delivery Date-Baby A: 11/04/20 Infant Delivery Time-Baby A: 23:01 Labor Stage 2 Duration: 54 minutes Placenta Delivery Date-Baby A: 11/04/20 Placenta Delivery Time-Baby A: 23:13 Labor-Stage 3 Duration: 12 minutes Total Length of Labor-Baby A: 27 hours and 46 minutes Placenta Cultured: No Placenta Status: Delivered Baby A Infant Gender: Male Gestational Status: Term (39-41.6 wks) weight: 7 lb 8.99 oz Weight Comment: 3430 gms Score-1 Minute Interval(Baby A) Heart Rate-1 minute: 100 BPM or Greater Respiratory Effort- 1 minute: Spontaneous/Strong Cry Muscle Tone-1 minute: Minimal Flexion/Extension Reflex Response-1 minute: Minimal Response Color-1 minute: Bluish Hands or Feet Score-5 Minute Interval(Baby A) Heart Rate- 5 minute: 100 BPM or Greater Respiratory Effort-5 minute: Spontaneous/Strong Cry Muscle Tone-5 minute: Active Movement Reflex Response-5 minute: Prompt Response Color-5 minute: Bluish Hands or Feet Procedure Procedures: Cord Blood Collection Interventions Episiotomy Indication: Distress , Episiotomy Description: Midline . Sponge Count Correct: No Sponges Placed in Vagina , Sharp Count Correct: Yes . Episiotomy/Repair Note: 3.0 Vicryl, epidural anesthesia, no extension, no additional laceration
[2020-11-05] VITALS (10 sets, daily range): BP systolic 118–170; BP diastolic 63–98; PULSE 57–87; RESP 16–18; TEMP 36.5–37.2; O2SAT 96–99
[2020-11-05] MEDS: Acetaminophen 325 MG TAB 650 MG PO ×3 (01:00→20:56)
[2020-11-05] MEDS: Ibuprofen 600 MG TAB PO ×4 (01:00→20:56)
[2020-11-05 07:11] LABS: HCT 36.6 % (36.0-46.0); MCH 31.1 pg (27.0-33.0); MCHC 32.8 % (32.0-36.0); MCV 94.8 fL (80-95); MPV 11.1 fL (8.0-11.0); Platelet Count 186 10^3/uL (130-400); RBC 3.86 10^6/uL (3.93-5.22); RDW 13.2 % (11.7-14.6); RDW-SD 45.5 fL; WBC 22.92 10^3/uL (4.4-10.8)
[2020-11-05] MEDS: Docusate Sodium 100 MG CAP PO (07:52)
[2020-11-05] MEDS: Dibucaine 1% 28 GM TUBE (07:54)
--- NOTE | 2020-11-05 13:01 | W.ANESPOSTOP ---
Postoperative Evaluation Date, Time and Location Date Performed: 11/05/20 Time Performed: 12:50 Patient Location: Obstetrics Vital Signs Most Recent Imported Vital Signs: Most Recent Vital Signs Temp Pulse Resp BP Pulse Ox 36.7 C 83 16 123/89 96 11/05/20 08:40 11/05/20 08:40 11/05/20 08:40 11/05/20 08:40 11/05/20 08:40 Pain Score Most Recent Pain Score: Most Recent Pain Score Pain Level [Abdomen] 4 11/05/20 08:40 Pain Level 6 11/05/20 07:52 Assessment Mental Status: Awake (Alert & Oriented to Patient Baseline) Airway and Respiratory Function: Patent airway with normal (patient baseline) respiratory exam Cardiovascular Function: Hemodynamically Stable Hydration Status: Adequately Hydrated Nausea & Vomiting: No Nausea or Vomiting Pain: Pt. Denies Any Pain Peripheral Nerve Block: Patient did not receive a nerve block
--- NOTE | 2020-11-05 15:05 | W.PM.OBPNV1 ---
Date of service: 11/05/20 Time of Service: 15:04 Assessment and Plan Assessment and plan (1) Term delivered: Status: Acute Assessment and plan: A: PPD#1, Satisfied with experience fairly well, LC following Neg for YEE, scotomata, or RUQ pain Elevated BP noted interspersed with nml readings Undecided regarding control choice WBC with elevation @ 22, nml hgb/hct P: monitor BP, labs tomorrow if elevations continue pt counseled on HTN warning signs LC consult ongoing Pt desires discharge when baby is released Would f/up @ 1, 2 & 6 wks (2) Hypertension, condition or complication: Status: Acute Subjective Subjective Patient comments: Pain well controlled, Tolerating diet and Flatus present baby status: Doing well, Nursing well, Rooming in and Strong Bonding Observed feeding status: Exclusively breast feeding Exam Physical Exam Vital signs: Temp Pulse Resp BP Pulse Ox 97.9 F 82 16 139/88 99 11/06/20 09:30 11/06/20 09:30 11/06/20 09:30 11/06/20 09:35 11/06/20 09:30 Vital Signs Reviewed: Yes Constitutional Constitutional: no acute distress HEENT Exam HEENT Exam: Normal Neck Exam Neck Exam: Normal Breast Exam Bilateral: Breast Exam: Normal and Soft Nipple Exam: Normal and Uninjured Respiratory Exam Respiratory Exam: Normal Cardiovascular Exam Cardiovascular Exam: Normal Abdominal Exam Abdomen: Other (soft, nontender) Fundal Exam Fundus: Below Umbilicus and Firm Rectal Exam Rectal Exam: Normal Exam Perineum: Repair Intact Extremities Exam Extremity Exam: Normal Back/Spine/Pelvis Exam Back Exam: Normal Skin Exam Skin Exam: Normal Neurological Exam Neurological Exam: Normal Psychiatric Exam Psychiatric Exam: Normal Results Hemoglobin/Hematocrit: Hgb 11.1 g/dL (11.2-15.7) L 11/06/20 11:14 Hct 33.9 % (36.0-46.0) L 11/06/20 11:14 Abnormal Lab Findings: Abnormal Labs 11/04/20 11/05/20 11/06/20 02:00 06:55 11:14 WBC 15.61 H 22.92 H RBC 3.92 L 3.86 L Hgb Hct MCV MPV 11.2 H 11.1 H Total Bilirubin 0.1 L Alkaline Phosphatase 167 H Albumin 2.6 L 11/06/20 11:14 WBC 14.28 H RBC 3.56 L Hgb 11.1 L Hct 33.9 L MCV 95.2 H MPV Total Bilirubin Alkaline Phosphatase Albumin
[2020-11-06 04:58] VITALS: BP 135/93; PULSE 74; RESP 18
[2020-11-06] MEDS: Dibucaine 1% 28 GM TUBE TP (08:18)
[2020-11-06] MEDS: Ibuprofen 600 MG TAB PO ×2 (08:20→16:45)
[2020-11-06] MEDS: Docusate Sodium 100 MG CAP PO (08:20)
[2020-11-06] MEDS: Acetaminophen 325 MG TAB 650 MG PO (08:20)
[2020-11-06 09:30] VITALS: BP 145/91; PULSE 82; RESP 16; TEMP 36.6; O2SAT 99
[2020-11-06 09:35] VITALS: BP 139/88
[2020-11-06 11:15] LABS: HCT 33.9 % (36.0-46.0); HGB 11.1 g/dL (11.2-15.7); MCH 31.2 pg (27.0-33.0); MCHC 32.7 % (32.0-36.0); MCV 95.2 fL (80-95); Platelet Count 183 10^3/uL (130-400); RBC 3.56 10^6/uL (3.93-5.22); RDW 13.2 % (11.7-14.6); RDW-SD 46.1 fL; WBC 14.28 10^3/uL (4.4-10.8)
[2020-11-06 11:28] LABS: ALT 32 U/L (14-59); AST 32 U/L (15-37); Albumin 2.6 g/dL (3.4-5.0); Alkaline Phosphatase 167 U/L (46-116); Anion Gap 7.9 mmol/L (3-11); BUN 14 mg/dL (7-18); Bilirubin, Total 0.1 mg/dL (0.2-1.0); CO2 23.1 mmol/L (21.0-32.0); CREATININE 0.8 mg/dL (0.55-1.02); Calcium 9.2 mg/dL (8.5-10.1); Chloride 107 mmol/L (98-107); Glucose 77 mg/dL (74-106); Potassium 4.5 mmol/L (3.5-5.1); Sodium 138 mmol/L (136-145); Total Protein 6.5 g/dL (6.4-8.2); Uric Acid 4.7 mg/dL (2.6-6.0)
--- NOTE | 2020-11-06 12:14 | OBPPV_ITS ---
Date of service: 11/06/20 Time of Service: 12:14 Assessment and Plan Assessment and plan (1) Term delivered: Status: Acute Assessment and plan: A: PPD#2, nml PE No YEE, scotomata, or RUQ pain Gestational HTN without severe features, criteria met Considering POP's as [facility] choice P: Peds planning discharge possibly tomorrow Circ delayed until feeding has improved LC consult ongoing Gest HTN labs have been drawn and are pending Continue current care and support Will discharge when baby released (2) Hypertension, condition or complication: Status: Acute Subjective Subjective Patient comments: Pain well controlled, Tolerating diet and Flatus present baby status: Doing well, Nursing well, Rooming in, Strong Bonding Observed and Excessive weight loss [place] feeding status: Pipette Feeding (feeding pumped colostrum) Exam Physical Exam Vital signs: Temp Pulse Resp BP Pulse Ox 97.9 F 82 16 139/88 99 11/06/20 09:30 11/06/20 09:30 11/06/20 09:30 11/06/20 09:35 11/06/20 09:30 Vital Signs Reviewed: Yes Constitutional Constitutional: no acute distress HEENT Exam HEENT Exam: Normal Neck Exam Neck Exam: Normal Breast Exam Bilateral: Breast Exam: Normal and Soft Respiratory Exam Respiratory Exam: Normal Cardiovascular Exam Cardiovascular Exam: Normal Abdominal Exam Abdomen: Other (soft, nontender) Fundal Exam Fundus: Below Umbilicus and Firm Rectal Exam Rectal Exam: Normal Exam Perineum: Repair Intact Extremities Exam Extremity Exam: Normal Back/Spine/Pelvis Exam Back Exam: Normal Skin Exam Skin Exam: Normal Neurological Exam Neurological Exam: Normal Psychiatric Exam Psychiatric Exam: Normal Results Abnormal Lab Findings: Abnormal Labs 11/04/20 11/05/20 11/06/20 02:00 06:55 11:14 WBC 15.61 H 22.92 H RBC 3.92 L 3.86 L Hgb Hct MCV MPV 11.2 H 11.1 H Total Bilirubin 0.1 L Alkaline Phosphatase 167 H Albumin 2.6 L 11/06/20 11:14 WBC 14.28 H RBC 3.56 L Hgb 11.1 L Hct 33.9 L MCV 95.2 H MPV Total Bilirubin Alkaline Phosphatase Albumin
[2020-11-06 13:50] LABS: COMMENT (LAB VIEW ONLY) 26.82 mg/dL; PROTEIN < 6.0 mg/dL
[2020-11-06 16:30] VITALS: BP 150/99; PULSE 72; RESP 16; TEMP 36.9; O2SAT 100
--- NOTE | 2020-11-06 16:49 | W.PM.OBPNV1 ---
Date of service: 11/06/20 Time of Service: 16:49 Assessment and Plan Assessment and plan (1) Hypertension, condition or complication: Status: Acute Assessment and plan: A: labile BP HTN without severe features Pre-E labs WNL P: Consult with Dr. Alfaro: labs and BP readings reviewed medication not indicated at this time continue with routine care will plan on early BP check in office after discharge tomorrow Subjective Subjective Patient comments: No complaints Exam Physical Exam Vital signs: Temp Pulse Resp BP Pulse Ox 97.9 F 82 16 139/88 99 11/06/20 09:30 11/06/20 09:30 11/06/20 09:30 11/06/20 09:35 11/06/20 09:30 Results Hemoglobin/Hematocrit: Hgb 11.1 g/dL (11.2-15.7) L 11/06/20 11:14 Hct 33.9 % (36.0-46.0) L 11/06/20 11:14 Abnormal Lab Findings: Abnormal Labs 11/04/20 11/05/20 11/06/20 02:00 06:55 11:14 WBC 15.61 H 22.92 H RBC 3.92 L 3.86 L Hgb Hct MCV MPV 11.2 H 11.1 H Total Bilirubin 0.1 L Alkaline Phosphatase 167 H Albumin 2.6 L 11/06/20 11:14 WBC 14.28 H RBC 3.56 L Hgb 11.1 L Hct 33.9 L MCV 95.2 H MPV Total Bilirubin Alkaline Phosphatase Albumin
[2020-11-06 21:30] VITALS: BP 141/95; PULSE 70; RESP 18; TEMP 36.8
[2020-11-07 02:05] VITALS: BP 146/93; PULSE 71; RESP 18
[2020-11-07] MEDS: Acetaminophen 325 MG TAB 650 MG PO ×2 (06:13→14:02)
[2020-11-07] MEDS: Ibuprofen 600 MG TAB PO ×2 (06:13→14:02)
[2020-11-07 06:44] VITALS: BP 136/92; PULSE 71
[2020-11-07 08:00] VITALS: PULSE 71; RESP 14; TEMP 36.9
--- NOTE | 2020-11-07 08:44 | OBPPV_ITS ---
Date of service: 11/07/20 Time of Service: 08:44 Assessment and Plan Assessment and plan (1) Hypertension, condition or complication: Status: Acute Assessment and plan: BP stable without severe features HTN without severe features, pedal edema improving Urine output increasing, >1000 ml overnight Reviewed BP levels with Dr. Alfaro this morning No meds indicated Plan BP check on 11/10 (2) Term delivered: Status: Acute Assessment and plan: A: PPD#3 Pt ambulating well, caring for baby Accepts support and counseling, Pumping for minimal colostrum, nursing 10-15 minutes in length Pipette feeding formula and pumped milk P: Will offer pt boarder status if baby is not released today Plan for BP check this ; rtne f/up at 2 & 6 wks Written instructions reviewed & will be given to pt at d/c Remains undecided about BCM though leaning towards POP's Subjective Subjective Patient comments: No complaints, Pain well controlled, Tolerating diet and Flatus present baby status: Supplemental feeding going well, Rooming in, Strong Bonding Observed and Jaundice [place] feeding status: Breast and formula feeding and Pipette Feeding Exam Physical Exam Vital signs: Temp Pulse Resp BP Pulse Ox 98.4 F 71 14 136/92 H 100 11/07/20 08:00 11/07/20 08:00 11/07/20 08:00 11/07/20 06:44 11/06/20 16:30 Vital Signs Reviewed: Yes Constitutional Constitutional: no acute distress HEENT Exam HEENT Exam: Normal Neck Exam Neck Exam: Normal Breast Exam Bilateral: Breast Exam: Normal and Soft Respiratory Exam Respiratory Exam: Normal Cardiovascular Exam Cardiovascular Exam: Normal Abdominal Exam Abdomen: Other (soft, nontender) Fundal Exam Fundus: Below Umbilicus and Firm Rectal Exam Rectal Exam: Normal Exam Perineum: Repair Intact Extremities Exam Extremity Exam: Normal Back/Spine/Pelvis Exam Back Exam: Normal Skin Exam Skin Exam: Normal Neurological Exam Neurological Exam: Normal Psychiatric Exam Psychiatric Exam: Normal Results Hemoglobin/Hematocrit: Hgb 11.1 g/dL (11.2-15.7) L 11/06/20 11:14 Hct 33.9 % (36.0-46.0) L 11/06/20 11:14 Abnormal Lab Findings: Abnormal Labs 11/04/20 11/05/20 11/06/20 02:00 06:55 11:14 WBC 15.61 H 22.92 H RBC 3.92 L 3.86 L Hgb Hct MCV MPV 11.2 H 11.1 H Total Bilirubin 0.1 L Alkaline Phosphatase 167 H Albumin 2.6 L 11/06/20 11:14 WBC 14.28 H RBC 3.56 L Hgb 11.1 L Hct 33.9 L MCV 95.2 H MPV Total Bilirubin Alkaline Phosphatase Albumin
[2020-11-07] MEDS: Docusate Sodium 100 MG CAP PO (09:59)
[2020-11-07] MEDS: Dibucaine 1% 28 GM TUBE TP (10:00)
--- NOTE | 2020-11-07 14:00 | W.PM.OBDISCH ---
Date of service: 11/07/20 Time of Service: 14:00 DS: Diagnosis Discharge Diagnosis (1) Hypertension, condition or complication: Status: Acute (2) Term delivered: Status: Acute Discharge Plan Disposition Patient Disposition: HOME Condition: Good Discharge Details Reason For Visit: 40 Weeks R/O Labor Admit Date/Time: 11/04/20 01:50 Admit Provider: Erendira Gutierrez Attending Provider: Erendira Gutierrez Primary Care Provider: Nena Brownlee Hospital Course Hospital Course: Prolonged labor requiring epidural & pitocin augmentation resulting in , course notable for difficulties, jaundice, and onset of maternal hypertension without severe features. Home Meds and New Rx's Prescriptions: No Action prenat.vits,jade,[id number] Tablet 1 tab PO DAILY RF: 0 alum-mag hydroxide-simeth 200-200-20 mg/5 mL suspension 10 ml PO ONCE PRNRF: 0 loratadine [Allergy Relief (loratadine)] 10 mg tablet 10 mg PO DAILY PRNRF: 0 Discharge Instructions Additional Instructions: Please return to office for BP check on 11/10. Please keep 2 & 6 wk appts with managed care provider. Call for any concern or question. Stand Alone Forms: BC Instructions, NB Circumcision Care Inst., NB Instructions, BC Post Vaginal Deliver Activity:: Activity as Tolerated Equipment/Supplies:: No Equipment Needed Diet:: Normal Diet Discharge Orders Discharge Orders: Discharge Order (Routine); Ordered 11/07/20 Ordered By: Erendira Gutierrez OB:DS Summary Summary Vaginal Delivery Method: Spontaneaous Episiotomy Description: Midline Laceration Extension: Second Degree Contraception Discussed Contraception Discussed: Yes Contraceptive Plan: Undecided, [place] Gender-Baby A: Male weight: 7 lb 8.99 oz Status at Discharge Functional status at discharge: independent ambulation Overall status at discharge: patient is progressing back to baseline Mental Status: mental status grossly normal Speech and Movement: speech and movement normal and speech clear Mood: congruent mood Affect: normal affect Exam Physical Exam Vital signs: Temp Pulse Resp BP Pulse Ox 98.4 F 71 14 136/92 H 100 11/07/20 08:00 11/07/20 08:00 11/07/20 08:00 11/07/20 06:44 11/06/20 16:30 Vital Signs Reviewed: Yes Constitutional Constitutional: no acute distress HEENT Exam HEENT Exam: Normal Neck Exam Neck Exam: Normal Breast Exam Bilateral: Breast Exam: Normal and Soft Respiratory Exam Respiratory Exam: Normal Cardiovascular Exam Cardiovascular Exam: Normal Abdominal Exam Abdomen: Other (soft, nontender) Fundal Exam Fundus: Below Umbilicus and Firm Rectal Exam Rectal Exam: Normal Exam Perineum: Repair Intact Extremities Exam Extremity Exam: Normal Back/Spine/Pelvis Exam Back Exam: Normal Skin Exam Skin Exam: Normal Neurological Exam Neurological Exam: Normal Psychiatric Exam Psychiatric Exam: Normal [facility] Medical History (Updated 11/06/20 @ 12:08 by Erendira Gutierrez) 40 weeks gestation of Echogenic intracardiac focus of fetus on ultrasound Elevated blood pressure reading in office x2 Environmental allergies Eye fatigue Family history of coronary artery disease Family planning Recently stopped BC (Dec 2019) to start a family. Working with Nancy @ [employer]. Foot pain, left Acute, no clear memory of injury. @ left sole, just proximal to toes. Marijuana use early , neg THC on UDS at 38 wks Positive test Prolonged labor with first Uterine contractions Family History (Updated 04/21/20 @ 10:30 by Julien Carreon, VIVI) Father Multiple sclerosis Sister Multiple sclerosis Mother Hypertension Social History (Updated 04/21/20 @ 10:31 by Julien Carreon RN) Smoking/Tobacco Use Status: Never Smoking risk assessment performed?: Yes Alcohol Intake: former Counseling given: Yes Details: stopped with desire to concieve. al Substance use type: marijuana Do you feel safe at home: Yes Do you feel safe in your relationship?: Yes History History 1 Para 0 Hx # Term Pregnancies 0 Multiple births 0 Hx # Pregnancies 0 Ectopic pregnancies 0 AB induced 0 Hx Number of Living Children 0 AB spontaneous 0 DS: Data Vitals/I&O Vitals and I&O: Vital Signs Temperature 98.4 F 11/07/20 08:00 Pulse 71 11/07/20 08:00 Pulse Rhythm Regular 11/07/20 08:00 Respiratory Rate 14 11/07/20 08:00 Blood Pressure 136/92 H 11/07/20 06:44 Blood Pressure Mean 106 11/07/20 06:44 Pulse Oximetry 100 11/06/20 16:30 Oxygen Delivery Method Room Air 11/04/20 02:00 Oxygen Flow Rate 0 11/04/20 02:00 Pain Level 0 11/07/20 08:00 Comment 11/06/20 09:35 Intake & Output 11/06/20 11/07/20 11/07/20 23:59 11:59 23:59 Intake Total 1750 / 1750 Output Total 2074 1400 / 1400 Balance -325 / -325 -1400 / -1400 Intake: Oral 1750 / 1750 Output: Urine 2074 1400 / 1400 Other: Urine Color Pale Urine Appearance Clear Urine Odor None Comment Straight cath Voiding Methods Toilet
== END 2020-11-07 15:15 | disposition home or self-care (01) | DRG 807 ==
PROVIDERS: Admitting Provider Advanced Practice Midwife; PCP Student in an Organized Health Care Education/Training Program; Visit Provider Advanced Practice Midwife
DX: O63.9 Long labor, unspecified (principal); Z37.0 Single live birth; O76 Abnormality in fetal heart rate and rhythm complicating labor and delivery; O69.81X0 Labor and delivery complicated by cord around neck, without compression, not applicable or unspecified; O70.1 Second degree perineal laceration during delivery; Z3A.40 40 weeks gestation of pregnancy; O16.5 Unspecified maternal hypertension, complicating the puerperium
CPT/HCPCS: 36415; 80053; 85027; 86850; 86900; 86901; 87635; 82565; 84156; 84550; J2590

== ENCOUNTER 2021-02-02 02:54 | Outpatient (CLI) | payer BC, SELFPAY ==
[2021-02-02 10:05] LABS: HCT 40.9 % (36.0-46.0); HGB 12.9 g/dL (11.2-15.7); MCH 29.9 pg (27.0-33.0); MCHC 31.5 % (32.0-36.0); MCV 94.9 fL (80-95); Platelet Count 240 10^3/uL (130-400); RBC 4.31 10^6/uL (3.93-5.22); RDW 13.1 % (11.7-14.6); RDW-SD 45.2 fL
[2021-02-02 11:20] LABS: ALT 27 U/L (14-59); AST 17 U/L (15-37); Albumin 4.3 g/dL (3.4-5.0); Alkaline Phosphatase 77 U/L (46-116); Anion Gap 8.1 mmol/L (3-11); BUN 18 mg/dL (7-18); Bilirubin, Total 0.7 mg/dL (0.2-1.0); CO2 30.9 mmol/L (21.0-32.0); CREATININE 0.9 mg/dL (0.55-1.02); Calcium 9.5 mg/dL (8.5-10.1); Calculated LDL 121 mg/dL (<100); Chloride 104 mmol/L (98-107); Cholesterol 222 mg/dL (<200); Glucose 74 mg/dL (74-106); HDL Cholesterol 88 mg/dL (40-60); Potassium 4.4 mmol/L (3.5-5.1); Sodium 143 mmol/L (136-145); Total Protein 7.3 g/dL (6.4-8.2); Triglyceride 67 mg/dL (<150)
== END 2021-02-02 02:55 | disposition home or self-care (01) ==
LOC: LBO 02:54
PROVIDERS: PCP Student in an Organized Health Care Education/Training Program; Visit Provider Student in an Organized Health Care Education/Training Program
DX: O16.5 Unspecified maternal hypertension, complicating the puerperium; R77.0 Abnormality of albumin; Z13.220 Encounter for screening for lipoid disorders; E88.09 Other disorders of plasma-protein metabolism, not elsewhere classified
CPT/HCPCS: 36415; 80053; 80061; 85027

== ENCOUNTER 2022-01-09 14:22 | Outpatient (CLI) | payer BC, SELFPAY ==
[2022-01-09 14:23] LABS: Kit/Specimen SENT
[2022-01-09 14:34] LABS: Abs Immature Grans 0.03 10^3/uL (0.0-0.06); Absolute Basophil Count 0.05 10^3/uL (0.0-0.2); Absolute Eosinophil Count 0.19 10^3/uL (0.0-0.7); Basophils % 0.5; Eosinophils % 1.8; HCT 37.8 % (36.0-46.0); HGB 12.6 g/dL (11.2-15.7); Immature Grans % 0.3; Lymphocytes % 23.4; MCH 30.9 pg (27.0-33.0); MCHC 33.3 % (32.0-36.0); MCV 93 fL (80-95); MPV 9.6 fL (8.0-11.0); Monocytes % 6.6; Neutrophils % 67.4; Platelet Count 258 10^3/uL (130-400); RBC 4.08 10^6/uL (3.93-5.22); RDW 12.7 % (11.7-14.6); RDW-SD 43.5 fL; WBC 10.67 10^3/uL (4.4-10.8)
[2022-01-09 15:56] LABS: TSH (W/Ref FT4) 1.48 uIU/mL (0.36-3.74)
[2022-01-10 10:19] LABS: Hepatitis B Surface Ag Negative (Negative)
[2022-01-10 10:36] LABS: HIV-1/2 Ag & Ab Screen Negative (Negative)
[2022-01-10 10:56] LABS: Hepatitis C Ab w Rflx HCV PCR Negative (Negative)
[2022-01-10 11:05] LABS: Varicella IgG Antibody Positive (See Note)
[2022-01-10 11:57] LABS: Rubella IgG Ab (UVM) Positive (See Note)
[2022-01-10 18:49] LABS: Syphilis IgG w/Reflex Nonreactive (Nonreactive)
== END 2022-01-09 14:23 | disposition home or self-care (01) ==
LOC: LBO 14:24
PROVIDERS: PCP Student in an Organized Health Care Education/Training Program; Visit Provider Advanced Practice Midwife
DX: Z34.91 Encounter for supervision of normal pregnancy, unspecified, first trimester
CPT/HCPCS: 86787; 86803; 86850; 86900; 86901; 87340; 87389; 84443; 85025; 86762; 86780

== ENCOUNTER 2022-01-09 16:39 | Outpatient (REF) | payer BC, SELFPAY ==
[2022-01-09 17:30] LABS: *AMPHETAMINES SCREEN URINE Negative (Negative); *BARBITURATES SCREEN URINE Negative (Negative); *BENZODIAZEPINES SCREEN URINE Negative (Negative); Cannabinoids THC Negative (Negative); Cocaine Screen,Urine Negative (Negative); METHADONE URINE SCREEN Negative (Negative); OPIATES URINE SCREEN Negative (Negative)
[2022-01-09 17:31] LABS: Tricyclic Antidepressants Negative (Negative)
[2022-01-13 12:20] LABS: Buprenorphine Negative ng/mL (Cutoff: 5.0); Norbuprenorphine Negative ng/mL (Cutoff: 2.5)
== END 2022-01-09 16:40 | disposition home or self-care (01) ==
LOC: LBN 16:39
PROVIDERS: PCP Student in an Organized Health Care Education/Training Program; Visit Provider Advanced Practice Midwife
DX: Z34.91 Encounter for supervision of normal pregnancy, unspecified, first trimester
CPT/HCPCS: 80307; 80348; 87086

== ENCOUNTER 2022-03-09 14:48 | Outpatient (REF) | payer BC, SELFPAY ==
[2022-03-14 12:33] LABS: Buprenorphine Negative ng/mL (Cutoff: 5.0)
== END 2022-03-09 14:49 | disposition home or self-care (01) ==
LOC: LBN 14:48
PROVIDERS: PCP Student in an Organized Health Care Education/Training Program; Visit Provider Advanced Practice Midwife
DX: Z34.91 Encounter for supervision of normal pregnancy, unspecified, first trimester
CPT/HCPCS: 80348

== ENCOUNTER 2022-05-04 01:36 | Outpatient (CLI) | payer BC, SELFPAY ==
[2022-05-04 09:36] LABS: HCT 37.2 % (36.0-46.0); HGB 12.1 g/dL (11.2-15.7); MCH 30.9 pg (27.0-33.0); MCHC 32.5 % (32.0-36.0); MCV 95 fL (80-95); MPV 9.5 fL (8.0-11.0); Platelet Count 224 10^3/uL (130-400); RBC 3.92 10^6/uL (3.93-5.22); RDW 12.9 % (11.7-14.6); RDW-SD 44.5 fL; WBC 10.45 10^3/uL (4.4-10.8)
[2022-05-04 09:43] LABS: Glucose,1 Hr (Glucola) 115 mg/dL (80-140)
== END 2022-05-04 01:37 | disposition home or self-care (01) ==
LOC: LBO 01:36
PROVIDERS: PCP Student in an Organized Health Care Education/Training Program; Visit Provider Advanced Practice Midwife
DX: Z34.93 Encounter for supervision of normal pregnancy, unspecified, third trimester (principal); Z3A.28 28 weeks gestation of pregnancy
CPT/HCPCS: 36415; 82950; 85027

== ENCOUNTER 2022-06-28 12:02 | Outpatient (CLI) | payer BC, SELFPAY ==
[2022-06-28 12:18] VITALS: BP 124/92; PULSE 102; TEMP 37
[2022-06-28 12:21] VITALS: BP 124/92; PULSE 102
[2022-06-28 12:33] LABS: HCT 35.8 % (36.0-46.0); HGB 12.2 g/dL (11.2-15.7); MCH 31.3 pg (27.0-33.0); MCHC 34.1 % (32.0-36.0); MCV 92 fL (80-95); MPV 10.5 fL (8.0-11.0); Platelet Count 235 10^3/uL (130-400); RDW 13.1 % (11.7-14.6); RDW-SD 43.6 fL; WBC 9.91 10^3/uL (4.4-10.8)
[2022-06-28 12:36] LABS: COMMENT (LAB VIEW ONLY) 151.11 mg/dL; PROTEIN 30.1 mg/dL; Prot/Crea Ur Ratio 0.19
[2022-06-28 12:37] VITALS: BP 128/92; PULSE 96
[2022-06-28 12:39] LABS: *AMPHETAMINES SCREEN URINE Negative (Negative); *BARBITURATES SCREEN URINE Negative (Negative); *BENZODIAZEPINES SCREEN URINE Negative (Negative); Cannabinoids THC Negative (Negative); Cocaine Screen,Urine Negative (Negative); METHADONE URINE SCREEN Negative (Negative); OPIATES URINE SCREEN Negative (Negative); Tricyclic Antidepressants Negative (Negative)
[2022-06-28 12:48] LABS: ALT 22 U/L (14-59); AST 17 U/L (15-37); Albumin 2.7 g/dL (3.4-5.0); Alkaline Phosphatase 191 U/L (46-116); Anion Gap 10.7 mmol/L (3-11); BUN 11 mg/dL (7-18); Bilirubin, Total 0.2 mg/dL (0.2-1.0); CO2 21.3 mmol/L (21.0-32.0); CREATININE 0.6 mg/dL (0.55-1.02); Calcium 9.2 mg/dL (8.5-10.1); Chloride 101 mmol/L (98-107); Estimated GFR 118.49 (mL/min/1.73m2); Glucose 105 mg/dL (74-106); LDH 124 U/L (81-234); Sodium 133 mmol/L (136-145); Total Protein 6.6 g/dL (6.4-8.2); Uric Acid 3.6 mg/dL (2.6-6.0)
--- NOTE | 2022-06-28 13:12 | W.OBNST ---
Date of service: 06/28/22 Time of Service: 12:45 NST Evaluation Reason for NST Reasons for Nonstress Test: GESTATIONAL HYPERTENSION Gestational Age Gestational Age in Weeks and Days: 36 Weeks and 2Days Test and Monitor Explained Test/Monitor Explained: Test Explained, Monitor Explained and Patient Verbalized Understanding Vital Signs Blood Pressure: 124/92 Pulse: 102 Temperature: 98.6 F Urine Results Urine Protein: Positive Urine Ketones: Negative Urine Glucose: Negative Urine Blood: Negative NST Information Date on Monitor: 06/28/22 Time on Monitor: 12:05 Date off Monitor: 06/28/22 Time off Monitor: 12:32 Total Time on Monitor: 27 NST Interventions: PO Hydration Contraction Frequency: 0 NST Evaluation Patient States Movement: Present FHR Baseline: 140 Variability: Moderate 6-25 bpm Accelerations: 15x15 Decelerations: None NST Results: Reactive Note N/A NST Note Note: NST is reactive and reassuring. No severe range BP. Pre-E labs WNL. Will have twice weekly NST's for remainder of . consider IOL at 39 weeks due to history of GHTN and increased BP today. NST Reviewed and Verified by: Yanely Rodriguez
[2022-06-28 13:13] VITALS: BP 124/92; PULSE 102; TEMP 37
[2022-07-05 14:39] LABS: Buprenorphine Negative ng/mL (Cutoff: 5.0); Norbuprenorphine Negative ng/mL (Cutoff: 2.5)
== END 2022-06-28 13:04 | disposition home or self-care (01) ==
LOC: BCD 12:08 → OBS 12:09
PROVIDERS: PCP Student in an Organized Health Care Education/Training Program; Visit Provider Advanced Practice Midwife
DX: O16.3 Unspecified maternal hypertension, third trimester (principal); Z34.90 Encounter for supervision of normal pregnancy, unspecified, unspecified trimester; Z3A.36 36 weeks gestation of pregnancy
CPT/HCPCS: 36415; 80053; 80307; 80348; 85027; 59025; 82565; 83615; 84156; 84550; 87081

== ENCOUNTER 2022-07-03 08:39 | Outpatient (CLI) | payer BC, SELFPAY ==
[2022-07-03 09:35] VITALS: BP 131/88; PULSE 94; TEMP 36.5
[2022-07-03 09:37] VITALS: BP 131/88; PULSE 94
[2022-07-03 09:47] VITALS: BP 123/84; PULSE 94
[2022-07-03 10:04] VITALS: BP 128/87; PULSE 91
[2022-07-03 10:22] LABS: Bilirubin Negative (Negative); Blood Large (Negative); Clarity Sl Cloudy (Clear); Glucose Negative (Negative); Ketones Negative (Negative); Leukocyte Esterase Negative (Negative); Nitrite Negative (Negative); Specific Gravity 1.015 (1.005-1.025); Urobilinogen 0.2 mg/dL (Up to 0.2)
[2022-07-03 10:29] LABS: Bacteria Few HPF (Negative); C & S Indicated? No/Sq. Contamination; Casts Negative LPF (Negative); Crystals Negative HPF (Negative); Epithelial Cells Moderate HPF (Negative); Mucus Negative (Negative); WBC 0-2 HPF (0-5)
--- NOTE | 2022-07-03 11:07 | W.OBNST ---
Date of service: 07/03/22 Time of Service: 11:07 NST Evaluation Reason for NST Reasons for Nonstress Test: GESTATIONAL HYPERTENSION Gestational Age Gestational Age in Weeks and Days: 37 Weeks and 0Days Test and Monitor Explained Test/Monitor Explained: Test Explained, Monitor Explained and Patient Verbalized Understanding Vital Signs Blood Pressure: 131/88 Pulse: 94 Temperature: 97.7 F Urine Results Urine Protein: Negative Urine Ketones: Negative Urine Glucose: Negative Urine Blood: Positive NST Information Date on Monitor: 07/03/22 Time on Monitor: 09:28 Date off Monitor: 07/03/22 Time off Monitor: 09:48 Total Time on Monitor: 20 NST Interventions: PO Hydration Contraction Frequency: irritability. contractions 2-9 NST Evaluation Patient States Movement: Present FHR Baseline: 145 Variability: Moderate 6-25 bpm Accelerations: 15x15 Decelerations: None NST Results: Reactive Note N/A NST Note Note: Hematuria noted on urine dip and urinalysis and urine culture ordered. Keisha denies vaginal bleeding or cramping. BP 123/84-131/88. No edema or other signs of preeclampsia. RTO in 3 days for NST, Rest at home encouraged while working from home and Keisha will check BP at home with her BP cuff. NST Reviewed and Verified by: Yanely Dumont
[2022-07-03 11:08] VITALS: BP 131/88; PULSE 94; TEMP 36.5
[2022-07-03 13:20] VITALS: BP 113/61; PULSE 104
== END 2022-07-03 10:52 | disposition home or self-care (01) ==
LOC: BCD 08:40 → OBS 09:33
PROVIDERS: PCP Student in an Organized Health Care Education/Training Program; Visit Provider Advanced Practice Midwife
DX: O13.3 Gestational [pregnancy-induced] hypertension without significant proteinuria, third trimester (principal); Z3A.37 37 weeks gestation of pregnancy
CPT/HCPCS: 59025; 81003; 81015; 87086

== ENCOUNTER 2022-07-06 07:23 | Outpatient (CLI) | payer BC, SELFPAY ==
[2022-07-06 09:20] VITALS: BP 128/91; PULSE 90; TEMP 36.7
[2022-07-06 09:35] VITALS: BP 128/91; PULSE 90
[2022-07-06 09:53] VITALS: BP 126/83; PULSE 92
--- NOTE | 2022-07-06 10:18 | W.OBNST ---
Date of service: 07/06/22 Time of Service: 09:45 NST Evaluation Reason for NST Reasons for Nonstress Test: GESTATIONAL HYPERTENSION Gestational Age Gestational Age in Weeks and Days: 37 Weeks and 3Days Test and Monitor Explained Test/Monitor Explained: Test Explained, Monitor Explained and Patient Verbalized Understanding Vital Signs Blood Pressure: 128/91 Pulse: 90 Temperature: 98.1 F Urine Results Urine Protein: Positive Urine Ketones: Negative Urine Glucose: Negative Urine Blood: Negative NST Information Date on Monitor: 07/06/22 Time on Monitor: : Date off Monitor: 07/06/22 Time off Monitor: 09:55 Total Time on Monitor: 32 NST Interventions: PO Hydration NST Evaluation Patient States Movement: Present FHR Baseline: 135 Variability: Moderate 6-25 bpm Accelerations: 15x15 Decelerations: None NST Results: Reactive Note N/A NST Note Note: NST is reactive and reassuring. Urine protein/creat ratio sent. Will discuss with patient once result is available. No signs or symptoms of pre-eclampsia. doing twice weekly NST's. NST Reviewed and Verified by: Yanely Rodriguez
[2022-07-06 10:20] VITALS: BP 128/91; PULSE 90; TEMP 36.7
[2022-07-06 10:33] LABS: COMMENT (LAB VIEW ONLY) 208.93 mg/dL; PROTEIN 32.5 mg/dL; Prot/Crea Ur Ratio 0.15
== END 2022-07-06 09:56 | disposition home or self-care (01) ==
LOC: BCD 07:31 → OBS 09:18
PROVIDERS: PCP Student in an Organized Health Care Education/Training Program; Visit Provider Advanced Practice Midwife
DX: O13.3 Gestational [pregnancy-induced] hypertension without significant proteinuria, third trimester (principal); Z3A.37 37 weeks gestation of pregnancy
CPT/HCPCS: 59025; 82565; 84156

== ENCOUNTER 2022-07-10 07:22 | Outpatient (CLI) | payer BC, SELFPAY ==
[2022-07-10 09:27] VITALS: BP 124/86; PULSE 85; TEMP 36.5
[2022-07-10 09:58] VITALS: BP 124/86; PULSE 85
[2022-07-10 10:17] VITALS: BP 124/86; PULSE 85; TEMP 36.5
--- NOTE | 2022-07-10 10:27 | W.OBNST ---
Date of service: 07/10/22 Time of Service: 10:27 NST Evaluation Reason for NST Reasons for Nonstress Test: GESTATIONAL HYPERTENSION Gestational Age Gestational Age in Weeks and Days: 38 Weeks and 0Days Test and Monitor Explained Test/Monitor Explained: Test Explained, Monitor Explained and Patient Verbalized Understanding Vital Signs Blood Pressure: 124/86 Pulse: 85 Temperature: 97.7 F Urine Results Urine Protein: Negative Urine Ketones: Negative Urine Glucose: Negative Urine Blood: Negative NST Information Date on Monitor: 07/10/22 Time on Monitor: 09:30 Date off Monitor: 07/10/22 Time off Monitor: 10:20 Total Time on Monitor: 50 NST Interventions: PO Hydration Contraction Frequency: 7-11 NST Evaluation Patient States Movement: Present FHR Baseline: 130 Variability: Moderate 6-25 bpm Accelerations: 15x15 Decelerations: None NST Results: Reactive Note Ultrasound Done: N/A. NST Note Note: NST is reactive and reassuirng. NST Reviewed and Verified by: Yanely Rodriguez
[2022-07-10 10:28] VITALS: BP 124/86; PULSE 85; TEMP 36.5
== END 2022-07-10 10:32 | disposition home or self-care (01) ==
LOC: BCD 07:23 → OBS 09:26
PROVIDERS: PCP Student in an Organized Health Care Education/Training Program; Visit Provider Advanced Practice Midwife
DX: O13.3 Gestational [pregnancy-induced] hypertension without significant proteinuria, third trimester (principal); Z3A.38 38 weeks gestation of pregnancy
CPT/HCPCS: 59025

== ENCOUNTER 2022-07-13 08:24 | Outpatient (CLI) | payer BC, SELFPAY ==
[2022-07-13 08:37] VITALS: BP 129/89; PULSE 82; TEMP 36.6
[2022-07-13 08:45] VITALS: BP 129/89; PULSE 82
[2022-07-13 09:14] VITALS: BP 132/95; PULSE 88
--- NOTE | 2022-07-13 09:46 | W.OBNST ---
Date of service: 07/13/22 Time of Service: 09:46 NST Evaluation Reason for NST Reasons for Nonstress Test: GESTATIONAL HYPERTENSION Gestational Age Gestational Age in Weeks and Days: 38 Weeks and 3Days Test and Monitor Explained Test/Monitor Explained: Test Explained and Monitor Explained Vital Signs Blood Pressure: 129/89 Pulse: 82 Temperature: 97.9 F Urine Results Urine Protein: Positive Urine Ketones: Negative Urine Glucose: Negative Urine Blood: Negative NST Information Date on Monitor: 07/13/22 Time on Monitor: 08:36 Date off Monitor: 07/13/22 Time off Monitor: 09:30 Total Time on Monitor: 54 NST Interventions: PO Hydration NST Evaluation Patient States Movement: Present FHR Baseline: 135 Variability: Moderate 6-25 bpm Accelerations: 15x15 Decelerations: None NST Results: Reactive Note Ultrasound Done: N/A. NST Note Note: Keisha is here for NST. Denies preeclampsia symptoms. Trace urine protein, no edema. Reviewed plan for IOL at term. Keisha prefers to avoid induction until close to 40 weeks if possible. RTO in 4 days for NST, signs of preeclampsia reviewed NST Reviewed and Verified by: Yanely Dumont
[2022-07-13 09:48] VITALS: BP 129/89; PULSE 82; TEMP 36.6
== END 2022-07-13 09:40 | disposition home or self-care (01) ==
LOC: BCD 08:26 → OBS 08:29
PROVIDERS: PCP Student in an Organized Health Care Education/Training Program; Visit Provider Advanced Practice Midwife
DX: O13.3 Gestational [pregnancy-induced] hypertension without significant proteinuria, third trimester (principal); Z3A.38 38 weeks gestation of pregnancy
CPT/HCPCS: 59025

== ENCOUNTER 2022-07-16 20:41 | Inpatient (IN) | payer BC, SELFPAY ==
[2022-07-16] VITALS (27 sets, daily range): BP systolic 109–155; BP diastolic 56–107; PULSE 86–114; TEMP 36.5–36.8; O2SAT 94–99; BMI 28.5
--- NOTE | 2022-07-16 20:43 | HPE_ITS ---
Date of service: 07/16/22 Time of Service: 20:43 Assessment and Plan Assessment and plan (1) Spontaneous onset of labor: Status: Acute Assessment and plan: Admit to Center. Comfort measures. Desires tub if possible. Covid- 19 test. Anticipate . (2) Gestational hypertension: Status: Acute Assessment and plan: BP 128/88. CMP drawn. Will continue to assess BP readings. OB-HPI Labor/Delivery History of Present Illness Reason for Visit: NST Chief Complaint: Uterine Contractions; Suspected Rupture of Membranes (discomfort) , Associated Signs and Symptoms of Suspected ROM: none. GLENIS Calculator Estimated Delivery Date Method Current WG Current Estimate 07/24/22 Ultrasound #1 38w 6d Other Estimates 07/14/22 LMP (Certain) 40w 2d Comments: Strong regular contractions with sudden leaking of clear fluid upon arrival at [facility]. History of Present Expected Delivery Route/Plan - CNM FOB/ - Jose Dawkins (2nd child together) BG Interested in waterbirth, plans placenta encapsulation GBS negative Specific Issues/Plan 1. AMA 38 at delivery - cfDNA screening & [facility] level 2 scan w/MFM consult 1a. [facility] visit completed 03/08, nml scan, no f/up indicated 2. CF/SMA neg from previous , AFP-declines. 3. gHTN at end of prev preg, low dose ASA recommended 3a. B.P. 120s/80-90s, preeclampsia labs WNL, Twice weekly NST, 3b. MD consultation at provider meeting, IOL after 39 weeks recommended 4. Covid vaccinated - planning to get booster, flu vaccine 02/09/22 5. Groin pain - rest encouraged and consider PT if it persists. 6. LC consult prior to delivery- met with Eve JOHNSON All Active Problems (Updated 07/16/22 @ 20:47 by Yanely Dumont CNM) Spontaneous onset of labor (Acute) Gestational hypertension (Acute) Elderly multigravida in second trimester (Acute) Medical History Bilateral leg numbness Recurrent .. notable when breast-feeding in single position .. sensitive to it 2' Fam Hx MS (fa, sis). Possible low back path (?). PT [ ] Echogenic intracardiac focus of fetus on ultrasound Elevated blood pressure reading in office x2 Environmental allergies Eye fatigue Family history of coronary artery disease Foot pain, left Acute, no clear memory of injury. @ left sole, just proximal to toes. Marijuana use early , neg THC on UDS at 38 wks Family History Father Multiple sclerosis Sister Multiple sclerosis Mother Hypertension Social History Smoking/Tobacco Use Status: Never Smoking risk assessment performed?: Yes Alcohol Intake: former Counseling given: Yes Details: stopped with desire to concieve. al Substance use type: marijuana Do you feel safe at home: Yes Do you feel safe in your relationship?: Yes History History 2 Para 1 Hx # Term Pregnancies 1 Multiple births 0 Hx # Pregnancies 0 Ectopic pregnancies 0 AB induced 0 Hx Number of Living Children 1 AB spontaneous 0 Past Pregnancies Del. Date GA/Weeks # Preg Succ Route Wgt Sex Labor Lgth Anesth esia Location [facility] 11/04/20 40 No Yes vaginal 7 lb 5.6 oz Male 27hrs 46min regional [facility] Delivery Date: 11/04/20 Last Updated by: Cleo Gutierrez Long labor, epidural, pit aug, internal monitors, small epis, difficult experience. [facility] All[facility]ies and Home Medications Allergies Allergy/AdvReac Type Severity Reaction Status Date / Time seasonal Allergy Intermediate Uncoded 07/06/22 09:59 Home Medications Medication Instructions Recorded Confirmed Type prenat.vits,jade,[id number] 1 tab PO DAILY 03/07/20 07/16/22 History loratadine 10 mg tablet (Allergy 10 mg PO PRN PRN 01/02/21 07/16/22 History Relief (loratadine)) omega-3 fatty acids 500 mg capsule 2,000 mg PO DAILY 02/21/21 07/16/22 History fluticasone propionate 50 2 spray intranasal DAILY #16 grams 09/20/21 07/16/22 Rx mcg/actuation nasal spray,suspension aspirin 81 mg tablet,delayed 81 mg PO DAILY #90 tabs 01/09/22 07/16/22 Rx release flu vacc [id number] 6mos up(PF) 60 0.5 ml IM ONCE #0.5 mL 02/09/22 Clinic mcg(15 mcg x 4)/0.5 mL IM susp pantoprazole 40 mg tablet,delayed 40 mg PO DAILY #30 tabs 02/09/22 07/16/22 Rx release (Protonix) Exam Physical Exam Vital Signs Reviewed: Yes Constitutional Constitutional: no acute distress Detailed Labor and Delivery Exam Dilation: 3 Effacement (%): 80 station: -2 Cervix position: posterior Consistency: soft Ramirez Score: Cervical Points Exam 0 1 2 3 Dilation Closed 1-2cm 3-4 cm 5-6cm Effacement 0-30% 40-50% 60-70% 80% Consistency Firm Medium Soft Station -3 -2 -1,0 +1,+2 Position Posterior Mid Anterior Amniotic Membrane Status: Ruptured Rupture Method: Spontaneous Amniotic Fluid: Clear Nitrazine: Positive Monitor Mode: External Contraction Frequency(min): every 3 minutes Contraction Duration(sec): 60 Contraction Intensity: Moderate Fetus A Heart Rate Baseline: 140 Monitor Accelerations: 15 X 15 Monitor Decelerations: Variable Variability: Moderate (6-25 BPM) Presentation: Vertex Categories: Category I Date of Membrane Rupture: 07/16/22 Time of Membrane Rupture: 20:30 Respiratory Exam Respiratory Exam: Normal Cardiovascular Exam Cardiovascular Exam: Normal Abdominal Exam Abdominal Exam: Normal Exam Exam: Normal Extremities Exam Extremities Exam: Normal Skin Exam Skin Exam: Normal Psychiatric Exam Psychiatric Exam: Normal Risk Assessment Risk for Shoulder Dystocia Historical/Initial OB: NEGATIVE FOR: Pelvic Abnormality, Pre- BMI>30, Previous Shoulder Dystocia or Previous Macrosomia 40 Weeks: NEGATIVE FOR: EFW> 4500 gms, Maternal Weight Gain >40lb or Post Dates Increased Risk?: No Delivery Plan @ 36wks: NVD Kh Delivery Plan @ 40 wks: NVD Risk for Pre-Eclampsia Date Initiated/Initials: to start, 01/09/22, eduarda Yes, if one or more: POSTIVE FOR: Hx Pre-E/Gest HTN; NEGATIVE FOR: Chronic HTN, Multiple Gestation, Pre-gestational DM, Renal Disease, Systemic Lupus or APA Syndrome Yes, if 2 or more: POSITIVE FOR: Age>= 35 yrs; NEGATIVE FOR: Nulliparity, >10yr btwn pregnancies, BMI>30, ethinicty, Mother/Sister w/ Pre-E or Previous IUGR Risk for Post- Hemorrhage Initial: NEGATIVE FOR: Multiple Gestation, Previous PPH, Known Clotting Deficiency, Grand Multiparity or Anticoagulation At Risk?: No Risks Reviewed Risks Reviewed Upon Admission: Yes
[2022-07-16 21:11] LABS: Source Nasal/Nares
[2022-07-16 21:14] LABS: HCT 33.9 % (36.0-46.0); HGB 11.6 g/dL (11.2-15.7); MCH 31.7 pg (27.0-33.0); MCHC 34.2 % (32.0-36.0); MCV 93 fL (80-95); MPV 10.7 fL (8.0-11.0); Platelet Count 191 10^3/uL (130-400); RBC 3.66 10^6/uL (3.93-5.22); RDW 13.3 % (11.7-14.6); RDW-SD 45.2 fL; WBC 11.47 10^3/uL (4.4-10.8)
[2022-07-16 21:30] LABS: ALT 18 U/L (14-59); AST 18 U/L (15-37); Albumin 2.8 g/dL (3.4-5.0); Alkaline Phosphatase 223 U/L (46-116); Anion Gap 11.9 mmol/L (3-11); BUN 13 mg/dL (7-18); Bilirubin, Total 0.3 mg/dL (0.2-1.0); CO2 20.1 mmol/L (21.0-32.0); CREATININE 0.7 mg/dL (0.55-1.02); Calcium 9.4 mg/dL (8.5-10.1); Chloride 104 mmol/L (98-107); Estimated GFR 113.46 (mL/min/1.73m2); Glucose 87 mg/dL (74-106); Sodium 136 mmol/L (136-145); Total Protein 6.8 g/dL (6.4-8.2)
[2022-07-16 21:54] LABS: COVID-19 PCR Negative (Negative)
--- NOTE | 2022-07-16 22:58 | W.ANESPRE ---
General Info Date of Service Date Performed: 07/16/22 Height: 5 ft 6 in Weight: 80.286 kg Body Mass Index (BMI): 28.5 Meds Allergies and Home Medications Allergies Allergy/AdvReac Type Severity Reaction Status Date / Time seasonal Allergy Intermediate Uncoded 07/06/22 09:59 Home Medication Medication Instructions Recorded prenat.vits,jade,uvc-qrjy-qsmof 1 tab PO DAILY 03/07/20 loratadine 10 mg tablet (Allergy 10 mg PO PRN PRN 01/02/21 Relief (loratadine)) omega-3 fatty acids 500 mg capsule 2,000 mg PO DAILY 02/21/21 fluticasone propionate 50 2 spray intranasal DAILY #16 grams 09/20/21 mcg/actuation nasal spray,suspension aspirin 81 mg tablet,delayed 81 mg PO DAILY #90 tabs 01/09/22 release pantoprazole 40 mg tablet,delayed 40 mg PO DAILY #30 tabs 02/09/22 release (Protonix) Current Visit Medications: Current Medications Generic Name Dose Route Start Last Admin Trade Name Herbq PRN Reason Stop Dose Admin Fentanyl/Ropivacaine 200 ml 07/16/22 22:30 Fentanyl/Ropivacaine 2 Mcg/Ml And 0.1% 200 Ml Cadd Cassette EP DIRECTED FARRAH Sodium Chloride 500 mls @ 0 mls/hr 07/16/22 20:41 Saline 500ml Bag IV PRN PRN As Directed Ringer's Solution 500 mls @ 500 mls/hr 07/16/22 22:29 IV 07/16/22 23:28 BOLUS ONE IV Miscellaneous Supplies 1 each 07/16/22 20:45 Iv Access IV DIRECTED FARRAH Sodium Chloride 0 ml 07/16/22 20:41 Normal Saline Flush 10 Ml Syr IVP PRN PRN PFSH Active Problems Active Problems: Problem Status Onset Code Spontaneous onset of labor Gestational hypertension O13.9 Elderly multigravida in second trimester O09.522 Medical History Medical History Bilateral leg numbness Recurrent .. notable when breast-feeding in single position .. sensitive to it 2' Fam Hx MS (fa, sis). Possible low back path (?). PT [ ] Echogenic intracardiac focus of fetus on ultrasound Elevated blood pressure reading in office x2 Environmental allergies Eye fatigue Family history of coronary artery disease Foot pain, left Acute, no clear memory of injury. @ left sole, just proximal to toes. Marijuana use early , neg THC on UDS at 38 wks Tobacco Smoking/Tobacco Use Status: Never Alcohol Alcohol Intake: former Details: stopped with desire to concieve. al Substance Use Substance use type: marijuana Prental History History 2 Para 1 Hx # Term Pregnancies 1 Multiple births 0 Hx # Pregnancies 0 Ectopic pregnancies 0 AB induced 0 Hx Number of Living Children 1 AB spontaneous 0 Past Pregnancies Del. Date GA/Weeks # Preg Succ Route Wgt Sex Labor Lgth Anesthesia Location Prov Complic 11/04/20 40 No Yes vaginal 3333.904 g Male 27hrs 46min regional [facility] Delivery Date: 11/04/20 Last Updated by: Cleo Gutierrez Long labor, epidural, pit aug, internal monitors, small epis, difficult experience. Omid Carrion Vital Signs and Lab Results Vital Signs Most Recent Vital Signs in EMR: Most Recent Vital Signs Temp Pulse BP 36.6 C 102 H 155/103 H 07/16/22 20:53 07/16/22 22:54 07/16/22 22:54 Lab Results 07/16/22 21:00 07/16/22 21:00 Blood Type / Crossmatch: Patient ABO/Rh A Positive 07/16/22 Antibody Screen NEGATIVE 07/16/22 Complete Blood Count: White Blood Count 11.47 10^3/uL (4.4-10.8) H 07/16/22 21:00 Red Blood Count 3.66 10^6/uL (3.93-5.22) L 07/16/22 21:00 Hemoglobin 11.6 g/dL (11.2-15.7) 07/16/22 21:00 Hematocrit 33.9 % (36.0-46.0) L 07/16/22 21:00 Platelet Count 191 10^3/uL (130-400) 07/16/22 21:00 Complete Metabolic Panel: Sodium 136 mmol/L (136-145) 07/16/22 21:00 Potassium 4.0 mmol/L (3.5-5.1) 07/16/22 21:00 Chloride 104 mmol/L (98-107) 07/16/22 21:00 Carbon Dioxide 20.1 mmol/L (21.0-32.0) L 07/16/22 21:00 BUN 13 mg/dL (7-18) 07/16/22 21:00 Creatinine 0.7 mg/dL (0.55-1.02) 07/16/22 21:00 Est GFR (CKD-EPI 2020) 113.46 (mL/min/1.73m2) 07/16/22 21:00 Calcium 9.4 mg/dL (8.5-10.1) 07/16/22 21:00 Albumin 2.8 g/dL (3.4-5.0) L 07/16/22 21:00 Glucose 87 mg/dL (74-106) 07/16/22 21:00 Liver Function Panel: Alanine Aminotransferase (ALT/SGPT) 18 U/L (14-59) 07/16/22 21:00 Aspartate Amino Transf (AST/SGOT) 18 U/L (15-37) 07/16/22 21:00 Coagulation Panel: No Data to Display Cardiac Panel: No Data to Display Arterial Blood Gas: No Data to Display Venous Blood Gas: No Data to Display Pancreas Panel: No Data to Display Thyroid Panel: No Data to Display Infectious Disease: Coronavirus (COVID-19)(PCR) Negative (Negative) 07/16/22 21:00 Coronavirus 2019 Source Nasal/Nares 07/16/22 21:00 Blood Cultures: No Data to Display Toxicology Panel: Urine Amphetamines Screen Negative (Negative) 06/28/22 11:50 Urine Benzodiazepines Screen Negative (Negative) 06/28/22 11:50 Urine Barbiturates Screen Negative (Negative) 06/28/22 11:50 Urine Cocaine Screen Negative (Negative) 06/28/22 11:50 Urine Methadone Screen Negative (Negative) 06/28/22 11:50 Urine Opiates Screen Negative (Negative) 06/28/22 11:50 Ur Tricyclic Antidepressants Screen Negative (Negative) 06/28/22 11:50 Ur Tetrahydrocannabinol (THC) Scrn Negative (Negative) 06/28/22 11:50 Panel: No Data to Display Anesthesia Assessment and Plan Anesthesia History Personal History: No History of General Anesthesia Family History: No Family History of Anesthesia Complications Exercise Tolerance Exercise Tolerance: Metabolic Equivalents>4 Pertinent Negatives Pertinent Negatives: No Major Cardiovascular Symptoms or Complaints and No Major Pulmonary Symptoms or Complaints Cardiac & Pulmonary Exam Cardiac Exam: Normal S1/S2 Heart Sounds Pulmonary Exam: Clear Bilateral Breath Sounds Implantable Cardiac Device Does patient have a Pacemaker or an ICD?: No Airway Exam Known Difficult Airway: No Mallampati Class: 1 Mouth Opening: Normal (> 3cm) Thyromental Distance: Greater than 3 cm Neck Range of Motion: Full ROM Neck Circumference: Normal Teeth Condition: Normal Dentition ASA Classification ASA Score: ASA 2 Emergency Case?: No NPO Status NPO Status: Full Stomach () Status Status: Confirmed Anesthesia Plan Resuscitation Status: Full Code Anesthesia Technique: Labor Epidural Airway Planned: Natural Airway Monitors Used: Standard Monitors
[2022-07-16] MEDS: Lactated Ringers 500 ML IV (23:00)
[2022-07-16] MEDS: FentaNYL/ROPIvacaine 2 mcg/ml and 0.1% 200 ML CADD Cassette EP (23:30)
[2022-07-16] MEDS: fentaNYL 100 MCG/2 ML VIAL EP (23:32)
[2022-07-16] MEDS: Bupivacaine 0.25% Pres-Free 10 ML VIAL EP (23:32)
--- NOTE | 2022-07-16 23:34 | W.PM.OBNL1 ---
Date of service: 07/16/22 Time of Service: 23:34 Informed Consent Informed Consent: Regional Anesthesia Pelvic Exam Dilation: 5 Effacement (%): 100 station: -1 Position: ROP Cervix Position: mid Consistency: soft Pooling: Positive Contractions Monitor Mode: External Contraction Frequency(min): every 3 min Contraction Duration(sec): 60 Intensity: Strong Fetus A Monitor: External (US) Heart Rate Baseline: 135 Variability: Moderate (6-25 BPM) Categories: Category I FHR Rhythm: Regular Accelerations: 15 X 15 Decelerations: Variable Recurrence: Episodic Assessment and Plan Assessment and plan (1) Spontaneous onset of labor: Status: Acute Assessment and plan: Rest was encouraged and will continue to assess labor pattern and heart pattern. Dr. bocanegra was notified by phone of patients status and heart rate pattern. Anticipate , Objective Abnormal lab results 07/16/22 07/16/22 Range/Units 21:00 21:00 WBC 11.47 H (4.4-10.8) 10^3/uL RBC 3.66 L (3.93-5.22) 10^6/uL Hct 33.9 L (36.0-46.0) % Carbon Dioxide 20.1 L (21.0-32.0) mmol/L Anion Gap 11.9 H (3-11) mmol/L Alkaline Phosphatase 223 H (46-116) U/L Albumin 2.8 L (3.4-5.0) g/dL Temp Pulse BP Pulse Ox 97.7 F 114 H 131/71 98 07/16/22 22:58 07/16/22 23:28 07/16/22 23:28 07/16/22 23:26 Laboratory Results WBC 11.47 10^3/uL (4.4-10.8) H 07/16/22 21:00 RBC 3.66 10^6/uL (3.93-5.22) L 07/16/22 21:00 Hgb 11.6 g/dL (11.2-15.7) 07/16/22 21:00 Hct 33.9 % (36.0-46.0) L 07/16/22 21:00 MCV 93 fL (80-95) 07/16/22 21:00 MCH 31.7 pg (27.0-33.0) 07/16/22 21:00 MCHC 34.2 % (32.0-36.0) 07/16/22 21:00 RDW 13.3 % (11.7-14.6) 07/16/22 21:00 Plt Count 191 10^3/uL (130-400) 07/16/22 21:00 MPV 10.7 fL (8.0-11.0) 07/16/22 21:00 Sodium 136 mmol/L (136-145) 07/16/22 21:00 Potassium 4.0 mmol/L (3.5-5.1) 07/16/22 21:00 Chloride 104 mmol/L (98-107) 07/16/22 21:00 Carbon Dioxide 20.1 mmol/L (21.0-32.0) L 07/16/22 21:00 Anion Gap 11.9 mmol/L (3-11) H 07/16/22 21:00 BUN 13 mg/dL (7-18) 07/16/22 21:00 Creatinine 0.7 mg/dL (0.55-1.02) 07/16/22 21:00 Est GFR (CKD-EPI 2020) 113.46 (mL/min/1.73m2) 07/16/22 21:00 Glucose 87 mg/dL (74-106) 07/16/22 21:00 Calcium 9.4 mg/dL (8.5-10.1) 07/16/22 21:00 Total Bilirubin 0.3 mg/dL (0.2-1.0) 07/16/22 21:00 AST 18 U/L (15-37) 07/16/22 21:00 ALT 18 U/L (14-59) 07/16/22 21:00 Alkaline Phosphatase 223 U/L (46-116) H 07/16/22 21:00 Total Protein 6.8 g/dL (6.4-8.2) 07/16/22 21:00 Albumin 2.8 g/dL (3.4-5.0) L 07/16/22 21:00 COVID-19 Source Nasal/Nares 07/16/22 21:00 SARS-CoV-2 (PCR) Negative (Negative) 07/16/22 21:00 Patient ABO/Rh A Positive 07/16/22 21:00 Antibody Screen NEGATIVE 07/16/22 21:00 Subjective Interval history since last seen: Keisha is experiencing more pain. She used the shower for comfort and nitrous oxide with good effect. She requested an epidural. Chloé Holcomb [employer] was called and epidural was placed which Keisha tolerated well. . Results Hemoglobin/Hematocrit: Hgb 11.6 g/dL (11.2-15.7) 07/16/22 21:00 Hct 33.9 % (36.0-46.0) L 07/16/22 21:00 Abnormal Lab Findings: Abnormal Labs 07/16/22 07/16/22 21:00 21:00 WBC 11.47 H RBC 3.66 L Hct 33.9 L Carbon Dioxide 20.1 L Anion Gap 11.9 H Alkaline Phosphatase 223 H Albumin 2.8 L
--- NOTE | 2022-07-16 23:41 | W.ANESNEU ---
Epidural/Spinal Catheter Date Performed: 07/16/22 Procedure Start: 23:04 Procedure Stop: 23:42 Requesting Provider: Yanely Dumont Procedure Location: Obstetrics Reason Performed: Labor Epidural Standard Monitors Applied: Blood Pressure, SpO2 and See EMR for corresponding vital signs Patient Position: Sitting Sedation Given (Indicate Dose Given): No Sedation given Patient Mental Status: Awake Sterility: Hand Hygiene, Surgical Cap, Surgical Mask, Sterile Gloves, Sterile Drape/Sheet and Chlorhexidine Procedure Location: L3-L4 Interspace Epidural Needle: Tuohy 18 Gauge Needle Length: 3.5 Inch Needle Approach: Midline Epidural Procedure: Skin Prepped, Sterile Drape Placed, 1% Lidocaine to skin and subcutaneous tissue with 25G needle, Tuohy Needle placed, ZENIA to Saline Used, Epidural Catheter Placed, Negative Heme, Negative CSF Flow and Tuohy Needle Removed Catheter Placed?: Catheter Placed Test Dose (Indicate Dose Given): 3ml 1.5% Lidocaine with 1:200K Epinephrine Given and Negative Test Dose Loss of Resistance Depth (cm): 6 Catheter depth at skin (cm): 12 Dressing: [place] Dressing Placed and Mastisol Used Epidural Provider Bolus (Indicate Dose Given): Total bolus dose given in 3-5 ml divided doses and Total Bupivacaine 0.25% Given (ml) Dose:: 7 ml Additives (Indicate Dose Given ): Fentanyl PF Dose:: 100 mcg Infusion Medication: Medication Infusion Began Medication Infusion: Ropivacaine 0.1% with Fentanyl 2mcg/ml Maintenance Infusion Rate (ml/hour): 10 PCEA Bolus Dose (ml): 5 Post Procedure Pain score (0-10): 2 Block Level: N/A Paresthesia: None Ultrasound: Not Used Number of Attempts (See previous attempts in note section): 1 Procedure Tolerated: No Complications and Patient tolerated well Procedure Outcome: Successful Procedure Comment:: Test dose negative at 2319, bolus dose in divided doses at 2323, infusion initiated at 2333 Leg strength maintained gene. Performed By: Rhoda Holcomb
[2022-07-17] VITALS (20 sets, daily range): BP systolic 111–134; BP diastolic 56–86; PULSE 80–114; RESP 18; TEMP 36.6–37; O2SAT 96–99
[2022-07-17] MEDS: Oxytocin/Normal Saline 30 UNIT/500 ML BAG 167 UNITS IV (01:09)
--- NOTE | 2022-07-17 02:04 | OBVDS_ITS ---
Date of service: 07/17/22 Time of Service: 02:04 OB Labor/ Delivery Information Baby A Delivery Delivery Method: Spontaneaous Presentation: Vertex Amniotic Fluid: Clear Estimated Blood Loss: 200 Delivery Outcome: Liveborn Complications: none Infant Transferred: Remains with Mother Providers Nurse Correspondence [employer] Instructor: Yanely Dumont Division Order Analyst: Rhoda Holcomb Nurse: Sandra Herndon Nurse: Umesh Waldron Labor/Delivery Information Number of Babies in Womb: 1 Steroids Given: None Reason Steroids Not Administered: N/A Group Beta Strep: Negative Antibiotics Administered: No Rubella Status: Immune Blood Type: A+ Varicella Immunity: Immune Shoulder Dystocia: No Note: FHTs 130s during first stage of labor with occasional variable decelerations FHTs 130s in second stage with recurrent variable decelerations. Keisha progressed to full dilation and began pushing. Second stage huddle was done. A deep variable deceleration down to 60s occurred and Keisha was moved to hands and knees position. Spontaneous delivery of female infant delivered in MENDY position. A loose nuchal cord was noted and it was slipped over the baby's hea d prior to delivery. The baby was placed on mother's abdomen and dried and stimulated. Spontaneous cry. Cord was clamped and cut by the baby's father. The placenta delivered spontaneously and appears to by intact with a three vessel cord. Pitocin 30 units IV was administered after delivery of the placenta. The perineum was inspected and it is intact. The baby did breastfeed. After delivery, Mother and baby and father of the baby were stable and bonding well in the delivery room and there were no complications. Stages of Labor Onset of Labor Date: 07/15/22 Onset of Labor Time: 23:30 Complete Dilatation Date: 07/17/22 Complete Dilatation Time: 00:32 Labor - Stage 1 Duration: 25 hours and 2 minutes ROM Baby A: 07/16/22 ROM Baby A: 20:30 ROM Total Time- Baby A: [id number] Infant Delivery Date-Baby A: 07/17/22 Infant Delivery Time-Baby A: 01:01 Labor Stage 2 Duration: 29 minutes Placenta Delivery Date-Baby A: 07/17/22 Placenta Delivery Time-Baby A: 01:12 Labor-Stage 3 Duration: 11 minutes Total Length of Labor-Baby A: 25 hours and 31 minutes Placenta Status: Delivered Baby A Gender: Female Gestational Status: Term (39-41.6 wks) Gestational Age in Weeks/Days: 39 Weeks and 0 Days Score-1 Minute Interval(Baby A) Heart Rate-1 minute: 100 BPM or Greater Respiratory Effort- 1 minute: Spontaneous/Strong Cry Muscle Tone-1 minute: Active Movement Reflex Response-1 minute: Minimal Response Color-1 minute: Bluish Hands or Feet Total Score-1 minute: 8 Score-5 Minute Interval(Baby A) Heart Rate- 5 minute: 100 BPM or Greater Respiratory Effort-5 minute: Spontaneous/Strong Cry Muscle Tone-5 minute: Active Movement Reflex Response-5 minute: Prompt Response Color-5 minute: Bluish Hands or Feet Total Score- 5 minute: 9
[2022-07-17] MEDS: Acetaminophen 325 MG TAB 650 MG PO ×2 (03:20→23:03)
--- NOTE | 2022-07-17 07:57 | W.ANESPOSTOP ---
Postoperative Evaluation Date, Time and Location Date Performed: 07/17/22 Time Performed: 07:30 Patient Location: Obstetrics Vital Signs Most Recent Imported Vital Signs: Most Recent Vital Signs Temp Pulse BP Pulse Ox 36.8 C 84 130/86 99 07/17/22 04:19 07/17/22 04:19 07/17/22 04:19 07/17/22 00:29 Assessment Mental Status: Awake (Alert & Oriented to Patient Baseline) Airway and Respiratory Function: Patent airway with normal (patient baseline) respiratory exam Cardiovascular Function: Hemodynamically Stable Hydration Status: Adequately Hydrated Nausea & Vomiting: No Nausea or Vomiting Pain: Pt. Denies Any Pain Peripheral Nerve Block: Patient did not receive a nerve block
[2022-07-17] MEDS: Ibuprofen 600 MG TAB PO ×2 (08:32→14:33)
[2022-07-17] MEDS: Hamamelis Leaf/Glycerin 100 EACH BOX PR (08:32)
[2022-07-17] MEDS: Docusate Sodium 100 MG CAP PO (14:33)
[2022-07-18] MEDS: Ibuprofen 600 MG TAB PO (07:45)
[2022-07-18 07:55] VITALS: BP 133/98; PULSE 80; RESP 12; TEMP 37
--- NOTE | 2022-07-18 08:14 | W.PM.OBDISCH ---
Date of service: 07/18/22 Time of Service: 08:15 DS: Diagnosis Discharge Diagnosis (1) care following vaginal delivery: Status: Acute Asessment and Plan: 1. Keisha is feeling well. breast feeding is going fairly well. She is experienced and knows proper latch and has follow up visit tomorrow with Pediatrics 2. Has had one elevated BP although not severe range PP. Will RTO 07/19/22 for BP repeat check and has BP cuff at home 3. Is aware of PP pre-eclampsia warning signs and what to call for. 4. RTO 1 day and then 2 and 6 weeks PP unless otherwise indicated. Planning vasectomy for contraception but does not have appointment yet, will consider other options by 6 weeks PP. (2) Lactating mother: Status: Acute Asessment and Plan: 1. Experienced breast feeding mother, has feeding plan made with and follow up in 1 day. Discharge Plan Disposition Condition: Good Discharge Details Reason For Visit: LABOR Admit Date/Time: 07/16/22 20:41 Admit Provider: Yanely Dumont Attending Provider: Yanely Dumont Primary Care Provider: Nena Brownlee Hospital Course Hospital Course: Normal labor with epidural for pain management and NVD of live female. Normal PP course. Denies signs or pre-eclampsia. Had 1 elevated BP PP 133/98 Will return for BP check tomorrow in [facility]. [facility] Home Meds and New Rx's Prescriptions: Continued prenat.vits,jade,[id number] Tablet 1 tab PO DAILY pantoprazole [Protonix] 40 mg tablet,delayed release (DR/EC) 40 mg PO DAILY Qty: 30 0RF loratadine [Allergy Relief (loratadine)] 10 mg tablet 10 mg PO PRN PRN omega-3 fatty acids 500 mg capsule 2,000 mg PO DAILY fluticasone propionate 50 mcg/actuation spray,suspension 2 spray intranasal DAILY Qty: 16 1RF Rx Instructions: administer into each nostril Discontinued aspirin 81 mg tablet,delayed release (DR/EC) 81 mg PO DAILY Qty: 90 3RF Rx Instructions: 1 tab daily alternating with 2 tabs every other day flu vacc [id number] 6mos up(PF) 60 mcg (15 mcg x 4)/0.5 mL suspension 0.5 ml IM ONCE Qty: 0.5 0RF Discharge Instructions Instructions: Mastitis (GEN), Depression (GEN), Hypertension (GEN) Stand Alone Forms: BC Instructions, BC Post Vaginal Deliver Activity:: Activity as Tolerated Equipment/Supplies:: No Equipment Needed Diet:: As Tolerated OB:DS Summary Summary Vaginal Delivery Method: Spontaneaous Episiotomy Description: None Laceration Description: None Laceration Extension: N/A Contraception Discussed Contraception Discussed: Yes, Infant Gender-Baby A: Female Status at Discharge Functional status at discharge: independent ambulation Overall status at discharge: patient is back to baseline Mental Status: mental status grossly normal Speech and Movement: speech and movement normal Mood: congruent mood Affect: normal affect Time Spent with Patient providing and/or coordinating discharge services: Less than 30 minutes Exam Physical Exam Vital signs: Temp Pulse Resp BP Pulse Ox 98 F 83 18 126/83 99 07/17/22 19:30 07/17/22 19:30 07/17/22 19:30 07/17/22 19:30 07/17/22 00:29 Vital Signs Reviewed: Yes Constitutional Constitutional: no acute distress, average body habitus and cooperative HEENT Exam HEENT Exam: Normal Neck Exam Neck Exam: Normal (normal visual inspection) Respiratory Exam Respiratory Exam: Normal Cardiovascular Exam Cardiovascular Exam: Normal Abdominal Exam Abdomen: Other (normal exam) Fundal Exam Fundus: Below Umbilicus and Firm Comment: small lochia noted. KH Rectal Exam Rectal Exam: Not Done Exam Perineum: Intact and Normal Extremities Exam Extremity Exam: Normal (denies calf tenderness) and Full ROM Back/Spine/Pelvis Exam Back Exam: Normal Skin Exam Skin Exam: Normal Neurological Exam Neurological Exam: Normal Psychiatric Exam Psychiatric Exam: Normal PFSH All Active Problems Lactating mother (Acute) care following vaginal delivery (Acute) Gestational hypertension (Acute) Medical History Bilateral leg numbness Recurrent .. notable when breast-feeding in single position .. sensitive to it 2' Fam Hx MS (fa, sis). Possible low back path (?). PT [ ] Echogenic intracardiac focus of fetus on ultrasound Elderly multigravida in second trimester Elevated blood pressure reading in office x2 Environmental allergies Eye fatigue Family history of coronary artery disease Foot pain, left Acute, no clear memory of injury. @ left sole, just proximal to toes. Marijuana use early , neg THC on UDS at 38 wks Spontaneous onset of labor Family History Father Multiple sclerosis Sister Multiple sclerosis Mother Hypertension Social History Smoking/Tobacco Use Status: Never Smoking risk assessment performed?: Yes Alcohol Intake: former Counseling given: Yes Details: stopped with desire to concieve. al Substance use type: marijuana Do you feel safe at home: Yes Do you feel safe in your relationship?: Yes History History 2 Para 1 Hx # Term Pregnancies 1 Multiple births 0 Hx # Pregnancies 0 Ectopic pregnancies 0 AB induced 0 Hx Number of Living Children 1 AB spontaneous 0 Past Pregnancies Del. Date GA/Weeks # Preg Succ Route Wgt Sex Labor Lgth Anesthesia Location Prov Complic 11/04/20 40 No Yes vaginal 7 lb 5.6 oz Male 27hrs 46min [facility] Delivery Date: 11/04/20 Last Updated by: Cleo Gutierrez Long labor, epidural, pit aug, internal monitors, small epis, difficult experience. Omid Carrion DS: Data Vitals/I&O Vitals and I&O: Vital Signs Temperature 98 F 07/17/22 19:30 Temperature Source Oral 07/17/22 19:30 Pulse 83 07/17/22 19:30 Pulse Rhythm Regular 07/17/22 21:19 Respiratory Rate 18 07/17/22 19:30 Respiratory Depth Normal 07/17/22 21:19 Blood Pressure 126/83 07/17/22 19:30 Blood Pressure Mean 97 07/17/22 19:30 Pulse Oximetry 99 07/17/22 00:29 Oxygen Delivery Method Room Air 07/16/22 20:44 Oxygen Flow Rate 0 07/16/22 20:44 Pain Level 3 07/18/22 07:45 Comment CNM aware of BP 07/16/22 22:58 Intake & Output 07/17/22 07/17/22 07/18/22 11:59 23:59 11:59 Intake Total 500.0 / 500.0 Output Total 300 / 900 600 / 900 Balance 200.0 / -400.0 -600 / -400.0 Intake: IV 500.0 / 500.0 Output: Urine 300 / 900 600 / 900
== END 2022-07-18 09:30 | disposition home or self-care (01) | DRG 807 ==
LOC: BCD 07-17 13:19 → OBS 07-17 13:19
PROVIDERS: Admitting Provider Advanced Practice Midwife; PCP Student in an Organized Health Care Education/Training Program; Visit Provider Advanced Practice Midwife
DX: O13.4 Gestational [pregnancy-induced] hypertension without significant proteinuria, complicating childbirth (principal); Z37.0 Single live birth; Z3A.38 38 weeks gestation of pregnancy; O76 Abnormality in fetal heart rate and rhythm complicating labor and delivery; O69.81X0 Labor and delivery complicated by cord around neck, without compression, not applicable or unspecified
CPT/HCPCS: 80053; 85027; 86850; 86900; 86901; 87635; J3010

== ENCOUNTER 2023-01-29 09:27 | Outpatient (CLI) | payer BC, SELFPAY ==
--- NOTE | 2023-01-29 09:15 | RT.EKG_ITS ---
APPROVED REPORT Exam: Resting ECG Reason for Exam: intermittent chest pain Patient Location: O HR:70 bpm ECG Measurements Heart Rate 70 AXIS GA 159 P 1 QRSd 99 QRS 55 QT 388 T 33 QTc 419 Conclusion Sinus rhythm...normal P axis, V-rate 50- 99 Normal Electrocardiogram
== END 2023-01-29 09:28 | disposition home or self-care (01) ==
LOC: DI.KIM 09:30
PROVIDERS: PCP Student in an Organized Health Care Education/Training Program; Visit Provider Nurse Practitioner
DX: R07.9 Chest pain, unspecified (principal)
CPT/HCPCS: 93010